=== PATIENT | male | born 1930 | race Caucasian/White ===

== ENCOUNTER 2016-05-22 11:07 | Outpatient (CLI) | payer MEDICARE, OTHER | END 2016-05-22 11:08 | disposition home or self-care (01) | DX: M47.816 Spondylosis without myelopathy or radiculopathy, lumbar region (principal) ==

== ENCOUNTER 2017-02-19 01:42 | Outpatient (CLI) | payer MEDICARE, OTHER | END 2017-02-19 01:43 | disposition critical access hospital (66) | LOC: EMS 01:42 | PROVIDERS: ATTEND Surgery | DX: K62.5 Hemorrhage of anus and rectum (principal) | CPT/HCPCS: A0425; A0427 ==

== ENCOUNTER 2017-02-19 02:06 | Inpatient (IN) | payer MEDICARE, OTHER ==
[2017-02-19 02:39] LABS: BASOPHILS # (AUTO) 0.1 10^3/uL (0.0-0.1); BASOPHILS % (AUTO) 0.9 %; EOSINOPHILS # (AUTO) 0.2 10^3/uL (0.0-0.7); EOSINOPHILS % (AUTO) 3.3 %; HCT - HEMATOCRIT 35.1 % (42.0-52.0); HGB - HEMOGLOBIN 11.7 g/dL (14.0-18.0); LYMPHOCYTES # (AUTO) 1.3 10^3/uL (1.5-3.5); LYMPHOCYTES % (AUTO) 18.4 %; MEAN CORPUSCULAR HEMOGLOBIN 30.7 pg (27.0-31.0); MEAN CORPUSCULAR HGB CONC 33.3 g/dL (32.0-36.0); MEAN CORPUSCULAR VOLUME 92.2 fL (80.0-94.0); MEAN PLATELET VOLUME 8.5 fL (7.4-11.4); MONOCYTES # (AUTO) 0.5 10^3/uL (0.0-1.0); MONOCYTES % (AUTO) 7.3 %; NEUTROPHILS # (AUTO) 4.8 10^3/uL (1.5-6.6); NEUTROPHILS % (AUTO) 70.1 %; RED CELL DISTRIBUTION WIDTH 13.7 % (12.0-15.0); UNCORRECTED WHITE BLOOD COUNT 6.8 x10^3/uL; WHITE BLOOD COUNT 6.8 x10^3/uL (4.8-10.8)
[2017-02-19 02:45] LABS: INR 1.1 (0.8-1.2); PT - PROTHROMBIN TIME 12.4 secs (9.9-12.6)
[2017-02-19 02:47] LABS: ALBUMIN/GLOBULIN RATIO 1.2 (1.0-2.2); BILIRUBIN,TOTAL 0.5 mg/dL (0.2-1.0); CALCIUM 8.2 mg/dL (8.5-10.3); POTASSIUM 4.1 mmol/L (3.5-5.0); TOTAL PROTEIN 6.3 g/dL (6.7-8.2)
[2017-02-19 02:52] LABS: PARTIAL THROMBOPLASTIN TIME 21.8 secs (24.9-33.3)
--- NOTE | 2017-02-19 03:45 | ED Physician Documentation ---
PD HPI GI BLEED - Stated complaint Stated Complaint: GI BLEED - Chief complaint Chief Complaint: Abd Pain - History obtained from History obtained from: Patient - History of Present Illness Timing - onset: Enter time (22:00) Timing - details: Abrupt onset Pain level max: 1 Pain level now: 1 Associated symptoms: BRBPR, Abdominal pain (minimal discomfort, 1 (out of 10) per patient, intermittent cramping). No: Vomiting, Chest pain Contributing factors: Aspirin use (81mg PO QD) Improved by: Other (no ameliorating factors) Worsened by: Other (no apparent exacerbating factors) Recently seen: Not recently seen - Additional information Additional information: presents to ED for hematochezia. Patient says he had normal BM 10 AM (he routinely looks at his stool, as he has h/o colon CA and was instructed to look if any visible blood or dark black stool). He then had a BM at 10 PM that appeared to be bright red blood with no stool. He then passed more bright red blood at 1 AM and thus called 911. He had colon CA 2010 for which he had removal of part of the colon. He then had left lower lobe (lung) mass which was eventually treated with lobectomy (he estimates this was either late 2010 or else 2011). He has not had any problems associated with these diagnoses since then. Review of Systems Constitutional: reports: Reviewed and negative Eyes: reports: Reviewed and negative Ears: reports: Reviewed and negative Nose: reports: Reviewed and negative Throat: reports: Reviewed and negative Cardiac: reports: Reviewed and negative Respiratory: reports: Reviewed and negative GI: reports: Abdominal Pain, Bloody / black stool. denies: Nausea, Vomiting, Constipation, Diarrhea : denies: Dysuria, Frequency Skin: reports: Reviewed and negative Musculoskeletal: reports: Reviewed and negative Neurologic: reports: Reviewed and negative PD PAST MEDICAL HISTORY - Past Medical History Past Medical History: Yes Endocrine/Autoimmune: Type 2 diabetes - Past Surgical History Past Surgical History: Yes - Present Medications Home Medications: Ambulatory Orders Medication Instructions Recorded Confirmed Aspirin [Ecotrin] 81 mg PO DAILY 01/05/14 02/19/17 Metformin HCl [Fortamet] 500 mg PO BID 01/05/14 02/19/17 oxyCODONE [Roxicodone] 5 - 10 mg PO Q6H #30 tablet 01/05/14 02/19/17 - Allergies Allergies/Adverse Reactions: Allergies Allergy/AdvReac Type Severity Reaction Status Date / Time morphine Allergy Respiratory Verified 01/05/14 09:34 - Social History Does the pt smoke?: No Smoking Status: Former smoker Does the pt drink ETOH?: No Does the pt have substance abuse?: No - Immunizations Immunizations are current?: No Immunizations: TDAP >10years/unknown PD ED PE NORMAL - Vitals Vital signs reviewed: Yes - General General: Alert and oriented X 3, No acute distress, Well developed/nourished - HEENT HEENT: Moist mucous membranes - Neck Neck: Supple, no meningeal sign - Cardiac Cardiac: RRR, No murmur - Respiratory Respiratory: No respiratory distress, Clear bilaterally - Abdomen Abdomen: Soft, Non tender, Non distended - Back Back: No CVA TTP - Derm Derm: Normal color, Warm and dry - Extremities Extremities: No edema - Neuro Neuro: Alert and oriented X 3 Results - Vitals Vitals: Vital Signs - 24 hr 02/19/17 02/19/17 02/19/17 02:08 04:22 05:31 Temperature 36.6 C Heart Rate 79 87 81 Respiratory 16 18 18 Rate Blood Pressure 140/65 H 117/61 112/63 O2 Saturation 100 100 99 Oxygen O2 Source Room air - Labs Labs: Laboratory Tests 02/19/17 02/19/17 02/19/17 02:22 02:22 02:22 WBC 6.8 RBC 3.80 L Hgb 11.7 L Hct 35.1 L MCV 92.2 MCH 30.7 MCHC 33.3 RDW 13.7 Plt Count 174 MPV 8.5 Neut # 4.8 Lymph # 1.3 L Latimer # 0.5 Eos # 0.2 Baso # 0.1 Absolute Nucleated RBC 0.00 Nucleated RBC % 0.0 PT 12.4 INR 1.1 APTT 21.8 L Sodium 136 Potassium 4.1 Chloride 105 Carbon Dioxide 24 Anion Gap 7.0 BUN 29 H Creatinine 1.0 Estimated GFR (MDRD) 71 L Glucose 145 H Calcium 8.2 L Total Bilirubin 0.5 AST 13 ALT 11 Alkaline Phosphatase 41 L Total Protein 6.3 L Albumin 3.4 Globulin 2.9 Albumin/Globulin Ratio 1.2 Lipase 22 Blood Type Antibody Screen Crossmatch IS Only 02/19/17 02:22 WBC RBC Hgb Hct MCV MCH MCHC RDW Plt Count MPV Neut # Lymph # Latimer # Eos # Baso # Absolute Nucleated RBC Nucleated RBC % PT INR APTT Sodium Potassium Chloride Carbon Dioxide Anion Gap BUN Creatinine Estimated GFR (MDRD) Glucose Calcium Total Bilirubin AST ALT Alkaline Phosphatase Total Protein Albumin Globulin Albumin/Globulin Ratio Lipase Blood Type O POSITIVE Antibody Screen NEGATIVE Crossmatch IS Only See Detail PD MEDICAL DECISION MAKING - ED course Complexity details: reviewed results, re-evaluated patient, considered differential, d/w patient, d/w family Departure - Departure Disposition: [facility] DC/Xfer Clinical Impression: Lower gastrointestinal bleeding Condition: Stable Discharge Date/Time: 02/19/17 06:11
[2017-02-19] MEDS ORDERED: PEG 3350/NA SULF,BICARB,CL/KCL 4,000 ML BOTTLE PO ONE (05:50)
[2017-02-19] MEDS ORDERED: DIATR MEGLU/DIATRIZOATE SODIUM 120 ML BOTTLE PO ONE (05:50)
[2017-02-19] MEDS ORDERED: SODIUM CHLORIDE FLUSH 0.9% 10 ML SYRINGE IVP PRN (05:52)
[2017-02-19] MEDS ORDERED: ONDANSETRON 4 MG/2 ML VIAL IVP PRN (05:52)
[2017-02-19] MEDS ORDERED: SODIUM CHLORIDE 0.9% 1,000 ML IV SCH ×2 (06:00→17:28)
[2017-02-19] MEDS ORDERED: IOPAMIDOL-300 50 ML VIAL ONE (06:11)
[2017-02-19] MEDS ORDERED: IOPAMIDOL-300 50 ML VIAL PO ONE (06:19)
[2017-02-19] MEDS ORDERED: IOPAMIDOL-300 100 ML VIAL ONE (06:56)
--- NOTE | 2017-02-19 07:08 | HISTORY & PHYSICAL EXAMINATION ---
DATE OF ADMISSION: 02/19/2017 CHIEF COMPLAINT: Gastrointestinal bleed. HISTORY OF PRESENT ILLNESS: The patient is an 86-year-old white male with past medical history of colon cancer, status post colon resection, who presented from home, brought in by ambulance to [facility] after developing acute onset of large gastrointestinal bleed. The patient described that he was in his usual state of health up to 10 p.m. on 02/18, at which time he needed to go to bathroom and he had a burgundy color, dark red, smelly, bloody stool. Subsequently, around 1 a.m. on 02/19, he had a similar bowel movement again; however, at that time it was a significantly large amount. His described that the patient had about a gallon of blood loss. The blood was running down his leg. There was blood all around the toilet and the patient was even leaking blood when he went back to bed and his sheets had a puddle of blood. Besides the GI bleed, the patient complained of gaseous abdominal distention and pain. The pain located in the left lower quadrant. The patient denied nausea, vomiting or fever. Regarding the history of colon cancer, it was diagnosed on a screening colonoscopy in 2010, and subsequently the patient underwent partial colectomy. He was on oral chemotherapy agent for a while, but the oral chemotherapy agent was not very effective and subsequently he did not accept any other chemotherapy regimen. At some point, however, chemotherapy was entertained and the patient does have a right-sided chest port. He tells me, however, that the chest port has never been used. Subsequently, in 2012, the patient's cancer was complicated by a lung mass. He underwent left lobe resection and colon cancer metastatic lesion was found in his lungs. The patient follows up with oncology in the [facility] [place] system. He undergoes screening blood work; continues to live independently have good life quality and he is firm on his belief of not wanting chemotherapy. Upon presentation to the ER, the patient was found with stable vital signs; however, he had worsening anemia. His baseline hemoglobin is 13.2 and hemoglobin today was 11.7. Initial laboratories showed BUN of 29, creatinine of 1. The ER physician, Dr. Wilcox, discussed the case with the covering surgeon, Dr. Parsons, who would feel comfortable admitting this patient here to [facility] and she would see the patient in consultation and consider colonoscopy. Code status was discussed at the bedside. The patient's was also present. It should be noted the patient was alert, oriented with intact cognition and mentation. He wishes to be FULL CODE STATUS, noting that he would not wish to be on life support for a prolonged period of time. PAST MEDICAL HISTORY 1. Borderline diabetes. 2. Metastatic stage IV colon cancer. Please see brief details listed in history present illness. 3. Peripheral neuropathy secondary to diabetes. 4. Aortic valve repair done about 20 years ago. 5. Osteoarthritis status post bilateral knee replacements. OUTPATIENT MEDICATIONS Included 1. Aspirin. 2. Metformin. 3. Oxycodone. ALLERGIES: MORPHINE. REVIEW OF SYSTEMS: Please see pertinent positives and pertinent negatives listed above at history of present illness. In addition, the patient reported dizziness, lightheadedness and presyncopal episode after he experienced GI bleed. His at the bedside told me that the patient passed out for a brief period of time. On complete 12-point review, there was no additional complaint. FAMILY HISTORY: Negative for colon cancer. Positive for breast cancer in the sister. SOCIAL HISTORY: The patient is fully functional with activities and instrumental activities of daily living. He mows the lawn and walks his dog. He is a nonsmoker, quit about 30 years ago. Lives with his . ER workup reviewed per electronic medical record. PHYSICAL EXAMINATION VITAL SIGNS: Temperature 36.6 Celsius, respiratory rate 18, heart rate in the 80s, blood pressure 120/60, oxygen saturation 100% on room air. GENERAL: The patient is an elderly male, who is not in distress. HEENT: No pallor, no jaundice. CVS: S1, S2. No obvious murmur. RESPIRATORY: Clear to auscultation without wheezes or crackles. SKIN: There was a large pigmented nevus on the right side of the upper back. No rash. No jaundice. ABDOMEN: Bowel sounds active. Abdomen is slightly distended, nontender, benign. LYMPH: No lymphedema. MUSCULOSKELETAL: Atraumatic. NEUROLOGICAL: Alert, oriented, nonfocal. PSYCH: Cooperative. ASSESSMENT/ACTIVE ISSUES/DIAGNOSES 1. Short syncope/presyncope in the setting of acute and active gastrointestinal bleed. 2. Lower gastrointestinal bleed with complicated history of colon cancer. 3. Blood loss anemia, hemoglobin decreased from 13.2 to 11.7. 4. Hemodynamically stable. 5. FULL CODE. PLAN AND ORDERS 1. The patient is getting admitted as inpatient given the large amount of blood loss and developing anemia and high risk for rebleed with history of colon cancer. 2. We will monitor the blood counts and transfuse if needed. 3. The case was discussed with the covering surgeon who will do a colonoscopy if needed. 4. In the meantime, I ordered a CT scan of the abdomen with contrast and I also added tagged red blood cell scan, which should be done if further bleeding observed. Per the patient's and his 's description, the patient had a large amount of blood loss. This is not shown looking at his hemodynamics and blood counts; however, it is still possible that he had a significant amount of blood loss and the blood counts lag behind the clinical course. 5. Deep venous thrombosis prophylaxis with Venodyne boots. 6. Clear liquid diet and colon prep as tolerated. Time spent in the care of this patient was 1 hour. JOB #: [id number] EXT JOB #:[id number] GE
[2017-02-19] MEDS: PANTOPRAZOLE 40 MG VIAL IVP SCH (07:55)
[2017-02-19] MEDS: SODIUM CHLORIDE FLUSH 0.9% 10 ML SYRINGE IVP SCH ×3 (07:55→20:36)
[2017-02-19 08:20] LABS: BILIRUBIN,URINE NEGATIVE (NEGATIVE); PH,URINE 5.5 PH (5.0-7.5)
[2017-02-19 08:22] LABS: UA CHARGE (STRIP ONLY) YES; UR CULTURE IF IND NOT INDICATED
[2017-02-19] MEDS ORDERED: IOPAMIDOL-300 100 ML VIAL IVP ONE (08:28)
--- NOTE | 2017-02-19 09:07 | CT Report ---
CT ABDOMEN AND PELVIS WITH CONTRAST: 02/19/2017 CLINICAL INDICATION: GI bleed, history of colon cancer. TECHNIQUE: Axial CT images of the abdomen and pelvis were obtained with 100 mL Isovue-300 intravenou sly as well as oral contrast. No previous CT is available for comparison. In accordance with CT protocol optimization, one or more of the following dose reduction techniques w ere utilized for this exam: automated exposure control, adjustment of mA and/or KV based on patient size, or use of iterative reconstructive technique. FINDINGS: Limited evaluation of the lung bases demonstrates atelectasis. Abdomen: The liver demonstrates multiple cysts. No definite solid hepatic lesion is appreciated. T he spleen, pancreas, and adrenal glands are unremarkable. The kidneys demonstrate cortical cysts. A small splenule is noted in the splenic hilum. The gallbladder demonstrates cholelithiasis, but no d istention or pericholecystic inflammation is seen. No bowel dilatation, free gas, or free fluid is p resent. No abdominal adenopathy is seen. Pelvis: Extensive sigmoid diverticulosis is present. No pelvic adenopathy or free fluid is present. The prostate is enlarged. There is a right inguinal hernia, containing fat. No bowel herniation i s seen. Osseous structures demonstrate degenerative changes. IMPRESSION: EXTENSIVE SIGMOID DIVERTICULOSIS. NO PERICOLONIC INFLAMMATION TO SUGGEST ACUTE DIVERTIC ULITIS. MULTIPLE HEPATIC CYSTS. RIGHT INGUINAL HERNIA, CONTAINING FAT. JOB #: [id number] EXT JOB #:[id number]
[2017-02-19 10:47] LABS: HCT - HEMATOCRIT 35.6 % (42.0-52.0); MEAN CORPUSCULAR HEMOGLOBIN 30.6 pg (27.0-31.0); MEAN CORPUSCULAR HGB CONC 33.8 g/dL (32.0-36.0); MEAN CORPUSCULAR VOLUME 90.7 fL (80.0-94.0); MEAN PLATELET VOLUME 8.2 fL (7.4-11.4); RED BLOOD COUNT 3.92 10^6/uL (4.70-6.10); RED CELL DISTRIBUTION WIDTH 14.1 % (12.0-15.0)
--- NOTE | 2017-02-19 13:42 | Nuclear Medicine Prelim Report ---
Exam: NM GI BLEED/TAGGED RBC IMPRESSION: No scintigraphic evidence of active GI bleed. [facility] SITE ID: [id number]
--- NOTE | 2017-02-19 13:45 | Nuclear Medicine Report ---
EXAM: GASTROINTESTINAL BLEED LOCALIZATION STUDY WITH VASCULAR FLOW STUDY EXAM DATE: 02/19/2017 01:15 PM. CLINICAL HISTORY: Lower GIB. COMPARISON: CT abdomen/pelvis 02/19/2017. TECHNIQUE: The patient's own red blood cells were labeled with 25.6 mCi Tc-99m pertechnetate accordin g to department protocol. Following the administration of the radiolabeled red blood cells, dynamic f low images were acquired for the initial 2 minutes. Next, dynamic gamma camera imaging for a total of 60 minutes post injection was acquired from the anterior projection. Postvoid images were also acqui red. FINDINGS: No foci of progressive antegrade or retrograde radiotracer activity to suggest etiology of GI bleed. Physiological uptake in vasculature, spleen, liver, and bladder. IMPRESSION: No scintigraphic evidence of active GI bleed. [facility] Referring Provider Line: [phone] SITE ID: [id number]
--- NOTE | 2017-02-19 14:17 | CONSULTATION NOTE ---
DATE OF CONSULTATION: 02/19/2017 00:00:00 REASON FOR CONSULTATION: Gastrointestinal bleed. HISTORY OF PRESENT ILLNESS: This is an 86-year-old male with a known history of metastatic colon cancer diagnosed in 2010, status post partial colectomy, who presented to the emergency department early this morning for 2 episodes of bright red blood per rectum. The first episode was around 2 a.m. He sat on the toilet and a copious amount of bright red blood was evacuated. He then went back to bed and woke up again with bright red blood, which had drained onto the sheets, soaking through the sheets. Subsequently he was seen in the emergency department for evaluation. His vital signs were noted to be normal and his hematocrit was noted to be 35. He was subsequently admitted to the medical service. This morning he has undergone a CT scan of the abdomen and pelvis which does not demonstrate any signs of recurrent metastatic disease. He also underwent a bleeding scan, which is preliminarily negative for any active bleeding. He has continued to have 4 episodes of dark blood per rectum with blood clots. His hemoglobin has remained stable and actually increased slightly from 11.7 to 12.0 and his hematocrit is 35.6 from 35.1 at 10 a.m. this morning. PAST MEDICAL HISTORY: Significant for diabetes, stage IV colon cancer, peripheral neuropathy, aortic valve repair 20 years ago, osteoarthritis. PAST SURGICAL HISTORY: lobectomy for metastatic colon cancer to the lung, Bilateral knee replacement, aortic valve replacement, partial colectomy with laterality unknown. HOME MEDICATIONS: 1. Aspirin 81 mg daily. 2. Metformin. 3. Oxycodone. ALLERGIES TO MEDICATION: MORPHINE. PHYSICAL EXAMINATION: VITAL SIGNS: 36.4 temperature, blood pressure 111/65, heart rate 81, respiratory rate 18, O2 saturation is 100% on room air. GENERAL: The patient is awake, alert, oriented x3, in no acute distress. He is of average build. CARDIOVASCULAR: Regular rate and rhythm. CHEST: Clear to auscultation bilaterally without rhonchi or wheezing. ABDOMEN: Soft, nondistended, nontender to palpation. EXTREMITIES: Well perfused. LABORATORY VALUES: White count 7.0, hemoglobin 12, hematocrit 35.6, platelets 194. INR 1.1. Sodium 136, potassium 4.1, chloride 105, bicarbonate 24, BUN 29, creatinine 1.0. ASSESSMENT: This is an 86-year-old gentleman with bright red blood per rectum. PLAN: The patient will undergo a bowel prep this evening and colonoscopy tomorrow. The procedure was explained to the patient in detail including the potential risks involved including, but not limited to bleeding, perforation, and missed lesions. I did discuss with the patient the possible differential diagnosis of his GI bleed which includes but is not limited to recurrent colon cancer, diverticular bleeding, colonic or rectal ulcerations or bleeding AVM. JOB #: [id number] EXT JOB #:[id number] [facility]ITAL[facility]iche[facility]
[2017-02-19] MEDS ORDERED: diphenhydrAMINE 25 MG CAPSULE PO PRN (17:26)
[2017-02-19 17:48] LABS: HCT - HEMATOCRIT 33.1 % (42.0-52.0)
[2017-02-19] MEDS: SODIUM/POTASSIUM/MAG SULFATES 354 ML PREP KIT PO SCH (19:02)
--- NOTE | 2017-02-19 19:11 | PROVIDER PROGRESS NOTE ---
Subjective - Prog Note Date Prog Note Date: 02/19/17 Prog Note Time: 08:00 - Subjective Pt reports feeling: Improved Subjective: Juan notes that he did not sleep well due to the events leading up to admission. He denies SOB, chest pain, N/V, or new cough. He admits to his bowel movements being less frequent and in the weeks prior to this having a difficult time with constipation. Current Medications - Current Medications Current Medications: Active Medications Generic Name Dose Route Start Last Admin Trade Name Freq PRN Reason Stop Dose Admin Diphenhydramine HCl 25 mg 02/19/17 17:26 Benadryl PO QPM PRN Insomnia Sodium Chloride 1,000 mls @ 50 mls/hr 02/19/17 19:48 02/20/17 01:29 Normal Saline 0.9% IV 50 mls/hr .Q20H GEORGI Administration Ondansetron HCl 4 mg 02/19/17 05:52 Zofran Inj IVP Q6HR PRN Nausea / Vomiting Pantoprazole Sodium 40 mg 02/19/17 07:00 02/20/17 05:58 Protonix IVP 40 mg QDAC GEORGI Administration Sodium Chloride 10 ml 02/19/17 05:52 Normal Saline Flush 0.9% IVP PRN PRN NEEDED PER PROVIDER ORDERS Sodium Chloride 10 ml 02/19/17 06:00 02/20/17 05:58 Normal Saline Flush 0.9% IVP 10 ml Q8HR GEORGI Administration Aspirin [Ecotrin] 81 mg PO DAILY 01/05/14 Metformin HCl [Fortamet] 500 mg PO BIDWM 01/05/14 Oxycodone HCl/Acetaminophen [Oxycodone-Acetaminophen 5-325] 1 tab PO Q6H PRN 12/28 Zolpidem [Ambien] 2.5 mg PO QPM 02/19/17 Objective - Vital Signs/Intake & Output Reviewed Vital Signs: Yes Vital Signs: Vital Signs x48h Temp Pulse Resp BP Pulse Ox 02/19/17 16:00 36.7 C 99 19 137/75 H 98 02/19/17 13:00 36.4 C L 102 H 20 140/82 H 98 Intake & Output: Intake & Output 02/16/17 02/17/17 02/18/17 02/19/17 23:59 23:59 23:59 23:59 Intake Total 2416 Balance 2416 - Objective General Appearance: positive: No acute distress, Alert Eyes Bilateral: positive: Normal inspection, PERRL ENT: positive: ENT inspection nml, Pharynx nml, Dry mucous membranes Neck: positive: Nml inspection, Thyroid nml, No JVD, Trachea midline Respiratory: positive: Chest non-tender, No respiratory distress, Breath sounds nml Cardiovascular: positive: Regular rate & rhythm, Systolic murmur Abdomen: positive: Non-tender, No organomegaly, Nml bowel sounds, No distention Back: positive: Nml inspection Skin: positive: Color nml, No rash, Warm, Dry Extremities: positive: Non-tender, Full ROM, Nml appearance, No pedal edema Neurologic/Psychiatric: positive: Oriented x3, CN's nml (2-12), Motor nml, Sensation nml, Mood/affect nml, Weakness - Lab Results Fish Bones: 02/20/17 05:56 02/20/17 05:56 Other Labs: Lab Results x24hrs 02/19/17 02/19/17 02/19/17 Range/Units 17:39 10:20 07:20 WBC 7.0 (4.8-10.8) x10^3/uL RBC 3.92 L (4.70-6.10) 10^6/uL Hgb 11.0 L 12.0 L (14.0-18.0) g/dL Hct 33.1 L 35.6 L (42.0-52.0) % MCV 90.7 (80.0-94.0) fL MCH 30.6 (27.0-31.0) pg MCHC 33.8 (32.0-36.0) g/dL RDW 14.1 (12.0-15.0) % Plt Count 194 (130-450) 10^3/uL MPV 8.2 (7.4-11.4) fL Urine Color YELLOW Urine Clarity CLEAR (CLEAR) Urine pH 5.5 (5.0-7.5) PH Ur Specific [place] 1.025 (1.002-1.030) Urine Protein NEGATIVE (NEGATIVE) mg/dL Urine Glucose (UA) NEGATIVE (NEGATIVE) mg/dL Urine Ketones NEGATIVE (NEGATIVE) mg/dL Urine Occult Blood NEGATIVE (NEGATIVE) Urine Nitrite NEGATIVE (NEGATIVE) Urine Bilirubin NEGATIVE (NEGATIVE) Urine Urobilinogen 0.2 (NORMAL) (NORMAL) E.U./dL Ur Leukocyte Esterase NEGATIVE (NEGATIVE) Ur Microscopic Review NOT INDICATED Urine Culture Comments NOT INDICATED Blood Type Recheck 02/19/17 Range/Units 06:36 WBC (4.8-10.8) x10^3/uL RBC (4.70-6.10) 10^6/uL Hgb (14.0-18.0) g/dL Hct (42.0-52.0) % MCV (80.0-94.0) fL MCH (27.0-31.0) pg MCHC (32.0-36.0) g/dL RDW (12.0-15.0) % Plt Count (130-450) 10^3/uL MPV (7.4-11.4) fL Urine Color Urine Clarity (CLEAR) Urine pH (5.0-7.5) PH Ur Specific [place] (1.002-1.030) Urine Protein (NEGATIVE) mg/dL Urine Glucose (UA) (NEGATIVE) mg/dL Urine Ketones (NEGATIVE) mg/dL Urine Occult Blood (NEGATIVE) Urine Nitrite (NEGATIVE) Urine Bilirubin (NEGATIVE) Urine Urobilinogen (NORMAL) E.U./dL Ur Leukocyte Esterase (NEGATIVE) Ur Microscopic Review Urine Culture Comments Blood Type Recheck O POSITIVE - Diagnostic Imaging Diagnostic Imaging Results: positive: Prelim report reviewed Assessment/Plan - Problem List (1) Lower gastrointestinal bleeding Impression: Patient noted to have miguel blood stool that "doubled the volume of his toilet water at home", with more that came out forcefully as he was making his way back to the bed. Amount slowly decreased after being admitted. Plan: General surgery planning for colonoscopy on 02/20/17. 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 Plan: Continue to monitor labs and clinically. (3) Syncope and collapse Impression: Patient was severely dizzy and collapsed on his bed just before ambulance arrived, but claims that he did not have a loss of consciousness. Plan: Continue to monitor, replace fluids gently. (4) History of malignant neoplasm of colon Impression: Patient has a known history of colon CA in 2010 that has been in remission without known metastatic disease. Plan: General surgery to perform colonoscopy on 02/20/17 for further evaluation.
[2017-02-19] MEDS: SODIUM CHLORIDE 0.9% 1,000 ML IV SCH (20:37)
[2017-02-20] MEDS: SODIUM CHLORIDE 0.9% 1,000 ML IV SCH (01:29)
[2017-02-20] MEDS: SODIUM/POTASSIUM/MAG SULFATES 354 ML PREP KIT PO SCH (04:06)
[2017-02-20] MEDS: SODIUM CHLORIDE FLUSH 0.9% 10 ML SYRINGE IVP SCH (05:58)
[2017-02-20] MEDS: PANTOPRAZOLE 40 MG VIAL IVP SCH (05:58)
[2017-02-20 06:11] LABS: HCT - HEMATOCRIT 32.8 % (42.0-52.0); HGB - HEMOGLOBIN 11.1 g/dL (14.0-18.0); MEAN CORPUSCULAR HEMOGLOBIN 31.2 pg (27.0-31.0); MEAN CORPUSCULAR HGB CONC 33.9 g/dL (32.0-36.0); MEAN CORPUSCULAR VOLUME 92.2 fL (80.0-94.0); MEAN PLATELET VOLUME 8.7 fL (7.4-11.4); POTASSIUM 3.7 mmol/L (3.5-5.0); RED BLOOD COUNT 3.55 10^6/uL (4.70-6.10); RED CELL DISTRIBUTION WIDTH 13.6 % (12.0-15.0); WHITE BLOOD COUNT 9.2 x10^3/uL (4.8-10.8)
[2017-02-20] MEDS ORDERED: LACTATED RINGERS 1,000 ML IV ONE (07:38)
[2017-02-20] MEDS ORDERED: fentaNYL 100 MCG/2 ML VIAL IVP ONE (07:57)
[2017-02-20] MEDS ORDERED: MIDAZOLAM 2 MG/2 ML VIAL IVP ONE (07:57)
--- NOTE | 2017-02-20 10:23 | Discharge Plan ---
Discharge Plan Disposition: 01 Home, Self Care Condition: Stable Diet: Regular Activity Restrictions: No Restrictions Shower Restrictions: No Driving Restrictions: No Weight Bearing: Full Weight Additional Instructions or Follow Up instructions: Please see PCP for further evaluation options and as a follow up to this hospitalization. Take all prescribed medications. No Smoking: If you smoke, Please STOP! Call for help.
--- NOTE | 2017-02-20 10:26 | DISCHARGE SUMMARY ---
Discharge Summary Admit Date: 02/19/17 Discharge Date: 02/20/17 Discharging Provider: OZZIE Jackson Code Status: Attempt Resuscitation Condition at Discharge: Good Discharge Disposition: 01 Home, Self Care - DIAGNOSES Admission Diagnoses: GI hemorrhage Iron deficiency anemia secondary to blood loss Syncope Malignant neoplasm of colon DM type 2 Discharge Diagnoses with Status of Each Condition: GI hemorrhage Iron deficiency anemia secondary to blood loss Syncope Malignant neoplasm of colon DM type 2 - ALLERGIES Allergies/Adverse Reactions: Allergies Allergy/AdvReac Type Severity Reaction Status Date / Time morphine Allergy Respiratory Verified 01/05/14 09:34 - MEDICATIONS Home Medications: Ambulatory Orders Medication Instructions Recorded Confirmed Aspirin [Ecotrin] 81 mg PO DAILY 01/05/14 02/19/17 Metformin HCl [Fortamet] 500 mg PO BIDWM 01/05/14 02/19/17 Oxycodone HCl/Acetaminophen 1 tab PO Q6H PRN 02/19/17 02/19/17 [Oxycodone-Acetaminophen 5-325] Zolpidem [Ambien] 2.5 mg PO QPM 02/19/17 02/19/17 - PHYSICAL EXAM AT DISCHARGE General Appearance: positive: No acute distress, Alert Eyes Bilateral: positive: Normal inspection, PERRL, EOMI ENT: positive: ENT inspection nml, Pharynx nml, No signs of dehydration Neck: positive: Nml inspection, Thyroid nml, No JVD, Trachea midline Respiratory: positive: Chest non-tender, No respiratory distress, Breath sounds nml Cardiovascular: positive: Regular rate & rhythm, No gallop Peripheral Pulses: positive: 1+ Abdomen: positive: Non-tender, No organomegaly, Nml bowel sounds, Other ( chronic inguinal hernia. Pt wears an abdominal binder.) Rectal: positive: Non-tender Back: positive: Nml inspection Skin: positive: Color nml, No rash, Warm, Dry Extremities: positive: Non-tender, Full ROM, Nml appearance, No pedal edema Neurologic/Psychiatric: positive: Oriented x3, CN's nml (2-12), Motor nml, Sensation nml, Mood/affect nml - LABS Result Diagrams: 02/20/17 05:56 02/20/17 05:56 - DIAGNOSTIC IMAGING Diagnostic Imaging Results: Final report reviewed - FOLLOW UP Follow Up: Follow up with PCP in the next few day as a post-hospital visit. May be beneficial to see your oncologist. - TIME SPENT Time Spent in Discharge (Minutes): 30
[2017-02-20 10:42] VITALS: BP 128/62
== END 2017-02-20 11:10 | disposition home or self-care (01) | DRG 379 ==
LOC: EDUNIT# → ED 02:06 → MS2 05:52
PROVIDERS: ADMIT Internal Medicine; ATTEND Nurse Practitioner
PROC: 0DJD8ZZ Inspection of Lower Intestinal Tract, Via Natural or Artificial Opening Endoscopic (ICD-10-PCS; principal; 2017-02-20 07:30)
DX: K92.2 Gastrointestinal hemorrhage, unspecified (principal); E11.9 Type 2 diabetes mellitus without complications; D50.0 Iron deficiency anemia secondary to blood loss (chronic); R55 Syncope and collapse; K57.30 Diverticulosis of large intestine without perforation or abscess without bleeding; Z79.899 Other long term (current) drug therapy; K64.8 Other hemorrhoids; Z87.891 Personal history of nicotine dependence; K64.4 Residual hemorrhoidal skin tags; E11.42 Type 2 diabetes mellitus with diabetic polyneuropathy; M19.90 Unspecified osteoarthritis, unspecified site; Z85.038 Personal history of other malignant neoplasm of large intestine; Z85.118 Personal history of other malignant neoplasm of bronchus and lung; Z90.49 Acquired absence of other specified parts of digestive tract; Z90.2 Acquired absence of lung [part of]; Z96.653 Presence of artificial knee joint, bilateral; Z79.82 Long term (current) use of aspirin; Z79.84 Long term (current) use of oral hypoglycemic drugs; Z79.891 Long term (current) use of opiate analgesic
CPT/HCPCS: 36415; 74177; 78278; 80048; 80053; 81001; 81003; 83690; 85014; 85018; 85025; 85610; 85730; 86850; 86900; 86901; 86920; 87086; 99284

== ENCOUNTER 2017-02-23 19:11 | Outpatient (CLI) | payer MEDICARE, OTHER | END 2017-02-23 19:12 | disposition critical access hospital (66) | LOC: EMS 19:11 | PROVIDERS: ATTEND Surgery | DX: K62.5 Hemorrhage of anus and rectum (principal) | CPT/HCPCS: A0425; A0427 ==

== ENCOUNTER 2017-02-23 19:39 | Inpatient (IN) | payer MEDICARE, OTHER ==
[2017-02-23] MEDS ORDERED: SODIUM CHLORIDE 0.9% 500 ML IV ONE ×2 (19:40→23:43)
[2017-02-23] MEDS ORDERED: SODIUM CHLORIDE 0.9% 1,000 ML IV ONE (19:40)
[2017-02-23 19:56] LABS: BASOPHILS # (AUTO) 0.1 10^3/uL (0.0-0.1); BASOPHILS % (AUTO) 0.5 %; EOSINOPHILS # (AUTO) 0.1 10^3/uL (0.0-0.7); EOSINOPHILS % (AUTO) 1.2 %; HCT - HEMATOCRIT 27.1 % (42.0-52.0); HGB - HEMOGLOBIN 9.1 g/dL (14.0-18.0); LYMPHOCYTES # (AUTO) 0.7 10^3/uL (1.5-3.5); LYMPHOCYTES % (AUTO) 6.8 %; MEAN CORPUSCULAR HGB CONC 33.6 g/dL (32.0-36.0); MEAN CORPUSCULAR VOLUME 92.3 fL (80.0-94.0); MEAN PLATELET VOLUME 8.2 fL (7.4-11.4); MONOCYTES # (AUTO) 0.6 10^3/uL (0.0-1.0); MONOCYTES % (AUTO) 5.6 %; NEUTROPHILS # (AUTO) 9.2 10^3/uL (1.5-6.6); NEUTROPHILS % (AUTO) 85.9 %; RED BLOOD COUNT 2.93 10^6/uL (4.70-6.10); RED CELL DISTRIBUTION WIDTH 13.7 % (12.0-15.0); UNCORRECTED WHITE BLOOD COUNT 10.7 x10^3/uL; WHITE BLOOD COUNT 10.7 x10^3/uL (4.8-10.8)
[2017-02-23 20:04] LABS: INR 1.1 (0.8-1.2); PT - PROTHROMBIN TIME 12.8 secs (9.9-12.6)
--- NOTE | 2017-02-23 20:08 | ED Physician Documentation ---
PD HPI GI BLEED - Stated complaint Stated Complaint: GI BLEED - Chief complaint Chief Complaint: Abd Pain - History obtained from History obtained from: Patient - History of Present Illness Timing - onset: Enter time (18:00 today (this episode; has other previous, recent episodes)) Timing - details: Abrupt onset Pain level max: 1 Pain level now: 1 Associated symptoms: BRBPR Improved by: Other (no apparent ameliorating factors) Worsened by: Other (no apparent inciting or exacerbating factors) Similar symptoms before: Diagnosis (lower GI bleed) Recently seen: Admitted - Additional information Additional information: admitted few days ago to [facility] for lower GI bleeding, h/o colon CA. He had lower endoscopy during [facility] stay and discharged 2 days ago. Patient says his BM x 2 yesterday were normal, but tonight at 6 PM he had BM with "three or four spoonfuls of clot" (per patient). He contacted his PMD, and covering physician recommended miralax. went to get this product and while she was gone, patient felt lightheaded and thus took his BP, results were 116/ 61. Before he stood up, however, he had large BRBPR with large clots. came home and called 911. Review of Systems Constitutional: denies: Fever, Chills, Sweats Eyes: reports: Reviewed and negative Ears: reports: Reviewed and negative Nose: reports: Reviewed and negative Throat: reports: Reviewed and negative Cardiac: reports: Reviewed and negative Respiratory: reports: Reviewed and negative GI: reports: Bloody / black stool. denies: Abdominal Pain, Nausea, Vomiting, Constipation, Diarrhea : denies: Dysuria, Frequency Skin: reports: Reviewed and negative Musculoskeletal: reports: Reviewed and negative Neurologic: reports: Generalized weakness (mild and intermittent (only mentioned during ROS, not part of chief complaint nor HPI)). denies: Focal weakness, Numbness, Headache PD PAST MEDICAL HISTORY - Past Medical History Past Medical History: Yes Cardiovascular: Valve disorder Neuro: None Endocrine/Autoimmune: Type 2 diabetes GI: GERD, Other : Frequency Musculoskeletal: Chronic back pain Other Past Medical History: colon ca - Past Surgical History Past Surgical History: Yes Ortho: Knee replacement Cardiovascular: Lobectomy - Present Medications Home Medications: Ambulatory Orders Medication Instructions Recorded Confirmed Aspirin [Ecotrin] 81 mg PO DAILY 01/05/14 02/23/17 Metformin HCl [Fortamet] 500 mg PO BIDWM 01/05/14 02/23/17 Oxycodone HCl/Acetaminophen 1 tab PO Q6H PRN 02/19/17 02/23/17 [Oxycodone-Acetaminophen 5-325] Senna [Senokot] 1 tab PO TID 02/23/17 02/23/17 - Allergies Allergies/Adverse Reactions: Allergies Allergy/AdvReac Type Severity Reaction Status Date / Time morphine Allergy Unknown Respiratory Verified 02/24/17 00:15 - Social History Does the pt smoke?: No Smoking Status: Never smoker Does the pt drink ETOH?: No Does the pt have substance abuse?: No - Immunizations Immunizations are current?: No Immunizations: TDAP >10years/unknown PD ED PE NORMAL - Vitals Vital signs reviewed: Yes - General General: Alert and oriented X 3, No acute distress, Well developed/nourished - HEENT HEENT: Moist mucous membranes - Cardiac Cardiac: RRR, No murmur - Respiratory Respiratory: No respiratory distress, Clear bilaterally - Abdomen Abdomen: Normal bowel sounds, Soft, Non tender, Non distended - Derm Derm: Normal color, Warm and dry - Extremities Extremities: No edema - Neuro Neuro: Alert and oriented X 3 Results - Vitals Vitals: Vital Signs - 24 hr 02/23/17 02/23/17 02/23/17 19:40 21:04 22:55 Temperature 36.9 C Heart Rate 90 85 87 Respiratory 18 16 14 Rate Blood Pressure 109/68 110/63 108/55 L O2 Saturation 100 100 100 Oxygen O2 Source Room air - Labs Labs: Laboratory Tests 02/23/17 02/23/17 02/23/17 19:50 19:50 19:50 WBC 10.7 RBC 2.93 L Hgb 9.1 L Hct 27.1 L MCV 92.3 MCH 31.0 MCHC 33.6 RDW 13.7 Plt Count 237 MPV 8.2 Neut # 9.2 H Lymph # 0.7 L [place] # 0.6 Eos # 0.1 Baso # 0.1 Absolute Nucleated RBC 0.00 Nucleated RBC % 0.0 PT 12.8 H INR 1.1 APTT 23.5 L Sodium Potassium Chloride Carbon Dioxide Anion Gap BUN Creatinine Estimated GFR (MDRD) Glucose Calcium Total Bilirubin AST ALT Alkaline Phosphatase Total Protein Albumin Globulin Albumin/Globulin Ratio Lipase Blood Type O POSITIVE Antibody Screen NEGATIVE 02/23/17 19:50 WBC RBC Hgb Hct MCV MCH MCHC RDW Plt Count MPV Neut # Lymph # [place] # Eos # Baso # Absolute Nucleated RBC Nucleated RBC % PT INR APTT Sodium 136 Potassium 4.2 Chloride 102 Carbon Dioxide 22 Anion Gap 12.0 BUN 22 H Creatinine 1.2 Estimated GFR (MDRD) 57 L Glucose 208 H Calcium 8.4 L Total Bilirubin 0.3 AST 11 ALT < 10 L Alkaline Phosphatase 34 L Total Protein 6.0 L Albumin 3.0 L Globulin 3.0 Albumin/Globulin Ratio 1.0 Lipase 21 L Blood Type Antibody Screen PD MEDICAL DECISION MAKING - ED course Complexity details: reviewed old records, reviewed results, re-evaluated patient , considered differential, d/w patient ED course: Patient's hemoglobin is 2 grams lower than last draw prior to his recent hospital discharge, and he describes a significant amount of maroon/dark red blood per rectum tonight, with and medics corroborating the amount that was on the chair and floor. D/W Dr. Noble, who will admit patient. I also d/w Dr. Parsons (no specific surgical recommendation at this time, and she opines that patient possibly will need IR if his condition deteriorates). Departure - Departure Disposition: ED Place in Observation Clinical Impression: Lower gastrointestinal bleeding Condition: Good Discharge Date/Time: 02/24/17 00:16
[2017-02-23 20:09] LABS: BILIRUBIN,TOTAL 0.3 mg/dL (0.2-1.0); BUN - BLOOD UREA NITROGEN 22 mg/dL (6-20); CALCIUM 8.4 mg/dL (8.5-10.3); CARBON DIOXIDE - CO2 22 mmol/L (21-32); CHLORIDE 102 mmol/L (101-111); CREATININE 1.2 mg/dL (0.6-1.2); GFR - MDRD 57 (>89); GLUCOSE 208 mg/dL (70-100); LIPASE 21 U/L (22-51); POTASSIUM 4.2 mmol/L (3.5-5.0); SODIUM 136 mmol/L (135-145)
[2017-02-23 20:11] LABS: PARTIAL THROMBOPLASTIN TIME 23.5 secs (24.9-33.3)
[2017-02-23] MEDS ORDERED: ACETAMINOPHEN 325 MG TABLET PO PRN (23:43)
[2017-02-23] MEDS ORDERED: ZOLPIDEM 5 MG TABLET PO PRN (23:43)
[2017-02-23] MEDS ORDERED: PROMETHAZINE 25 MG/1 ML VIAL IM PRN (23:43)
[2017-02-23] MEDS ORDERED: oxyCODONE 5 MG TABLET PO PRN ×2 (23:43)
[2017-02-23] MEDS ORDERED: PROCHLORPERAZINE 10 MG/2 ML VIAL IVP PRN (23:43)
[2017-02-24 00:34] LABS: BASOPHILS % (AUTO) 0.5 %; EOSINOPHILS # (AUTO) 0.1 10^3/uL (0.0-0.7); EOSINOPHILS % (AUTO) 0.9 %; HCT - HEMATOCRIT 24.9 % (42.0-52.0); HGB - HEMOGLOBIN 8.5 g/dL (14.0-18.0); LYMPHOCYTES % (AUTO) 12.9 %; MEAN CORPUSCULAR HEMOGLOBIN 31.3 pg (27.0-31.0); MEAN CORPUSCULAR HGB CONC 34.1 g/dL (32.0-36.0); MEAN PLATELET VOLUME 8.1 fL (7.4-11.4); MONOCYTES # (AUTO) 0.5 10^3/uL (0.0-1.0); MONOCYTES % (AUTO) 6.5 %; NEUTROPHILS # (AUTO) 6.4 10^3/uL (1.5-6.6); NEUTROPHILS % (AUTO) 79.2 %; RED BLOOD COUNT 2.71 10^6/uL (4.70-6.10); RED CELL DISTRIBUTION WIDTH 13.6 % (12.0-15.0); UNCORRECTED WHITE BLOOD COUNT 8.1 x10^3/uL; WHITE BLOOD COUNT 8.1 x10^3/uL (4.8-10.8)
[2017-02-24] MEDS: SODIUM CHLORIDE 0.9% 1,000 ML IV SCH ×2 (00:36→04:57)
[2017-02-24] MEDS: SODIUM CHLORIDE FLUSH 0.9% 10 ML SYRINGE IVP PRN (00:42)
[2017-02-24] MEDS: PANTOPRAZOLE 40 MG VIAL IVP SCH ×3 (00:42→17:11)
[2017-02-24] MEDS: INSULIN REGULAR HUMAN 100 UNIT/1 ML 10 ML MDV SUBQ SCH ×4 (01:16→18:19)
--- NOTE | 2017-02-24 01:46 | HISTORY & PHYSICAL EXAMINATION ---
Chief Complaint - Chief Complaint Chief Complaint: Bright red blood per rectum History of Present Illness - Admitted From Admitted From:: Emergency department - History Obtained From Records Reviewed: Yes History obtained from: Patient Exam Limitations: None - History of Present Illness HPI Comment/Other: Patient is an 86-year-old gentleman with a past medical history significant for [id number] diabetes, peripheral neuropathy, osteoarthritis, colon cancer with metastasis to the lung diagnosed in 2012, aortic valve replacement and recent hospitalization with GI bleed who presented to the emergency department with a chief complaint of bright red blood per rectum. The patient was just admitted to the hospital on 02/19/2017 till 02/20/2017 when he presented with bright red blood per rectum. The patient underwent a tagged RBC study which did not show any active bleeding and a CT of the abdomen and pelvis which showed severe sigmoid diverticulosis without any evidence of mass or diverticulitis. The patient also underwent a colonoscopy which revealed severe diverticulosis in the descending colon and sigmoid colon but no evidence of recurrent colon cancer. The likely etiology of the patient's bleeding was thought to be diverticular or hemorrhoidal as retroflexed views revealed internal hemorrhoids on the colonoscopy. The patient had no further bleeding during the hospitalization and his hemoglobin did remain stable so he was discharged home in stable condition. The patient states that since returning home he had been feeling well and had had no further episodes of bleeding until this evening. He states that this evening around 4 PM he had a bowel movement which was slightly bloody. He states that he called Dr. Parsons the surgeon news operations manager who thought the patient may be constipated and having an internal hemorrhoid bleed and told him to get a stool softener. The patient states that he sent his to go get a stool softener when he began feeling a sort of discomfort in his left lower quadrant and had to go back to the bathroom. The patient states that he then had a bowel movement that was very bloody with 2 large softball size clots and bright red blood. The patient states there was about 2 points of blood. When the patient's returned they called 911 and the patient was brought into the emergency department. The patient does admit to being on aspirin but is not on any other blood thinners. The patient denies any alcohol or tobacco use. The patient denies any use of NSAIDs. The patient also states that he felt dizzy after his bloody bowel movements. The patient states that he felt a slight discomfort in his left lower quadrant but had no other significant pain. The patient denies any nausea or vomiting. The patient denies any recent diarrhea. Patient denies any headaches, blurred vision, runny nose, sore throat, nasal congestion, cough, fevers, chills, chest pain, shortness of air, orthopnea, PND , urinary urgency, urinary frequency, dysuria, joint pains, muscle aches, joint swelling, back pain, neck stiffness, recent unintentional weight loss, changes in his appetite or any focal neurologic deficits. On presentation to the emergency department the patient was afebrile, his heart rate was in the high 80s-90s and blood pressure was soft around 109/68 the patient was given a liter and half of fluid in the emergency department. The patient's lab work did reveal a drop in his hemoglobin from 11.1 on discharge on 02/20/2017 to 9.1 on presentation to the emergency department today. The patient did not have any further bleeding in the emergency department but given his drop in hemoglobin and bleeding prior to coming to the emergency department the patient was placed in observation for further monitoring of his hemoglobin and further monitoring for bleeding. History - Past Medical History Cardiovascular: reports: Valve disorder (Aortic valve replacement) Respiratory: reports: Other (Lung metastasis of colon cancer status post resection of lung) Neuro: reports: None Endocrine/Autoimmune: reports: Type 2 diabetes GI: reports: GERD, Other (Colon cancer with metastasis) : reports: Frequency Musculoskeletal: reports: Osteoarthritis (Status post bilateral knee replacements), Chronic back pain, Other (Peripheral neuropathy) MRSA Hx?: No Other Past Medical History: colon ca - Past Surgical History General: reports: Hiatal hernia repair Ortho: reports: Knee replacement Cardiovascular: reports: Lobectomy - Family & Social History Family History: Mother: , Alzheimer's Disease, Father: , CAD, CVA/TIA Living arrangement: At home Living Situation: With spouse/s.o. Social History Notes: Patient is originally from [place] he and his moved to [facility] many years ago as the patient found a job at [employer]. The patient is now retired from [employer] him and his have been for 70 years and they have 2 sons. 1 of his sons lives on [facility] and the other one lives in [place]. The patient did smoke a pipe for a number of years but quit more than 30 years ago. The patient has never used any illicit drugs nor does he drink alcohol. - POLST Patient has POLST: No POLST Status: Full Code Meds/Allgy - Home Medications Home Medications: Ambulatory Orders Medication Instructions Recorded Confirmed Aspirin [Ecotrin] 81 mg PO DAILY 01/05/14 02/23/17 Metformin HCl [Fortamet] 500 mg PO BIDWM 01/05/14 02/23/17 Oxycodone HCl/Acetaminophen 1 tab PO Q6H PRN 02/19/17 02/23/17 [Oxycodone-Acetaminophen 5-325] Senna [Senokot] 1 tab PO TID 02/23/17 02/23/17 - Allergies Allergies/Adverse Reactions: Allergies Allergy/AdvReac Type Severity Reaction Status Date / Time morphine Allergy Unknown Respiratory Verified 02/24/17 00:15 Review of Systems - Other Findings Other Findings: A comprehensive review of systems was performed the pertinent positives and negatives are stated above in the HPI and the remainder of the review of systems is negative. Exam - Vital Signs Reviewed Vital Signs: Yes Vital Signs: Vital Signs x48h Temp Pulse Resp BP Pulse Ox 02/24/17 00:56 36.6 C 97 16 123/59 L 97 - Physical Exam General Appearance: positive: No acute distress, Alert Eyes Bilateral: positive: Normal inspection, PERRL, EOMI, No lid inflammation, No scleral icterus, Other (Conjunctival pallor) ENT: positive: ENT inspection nml, Pharynx nml, Dry mucous membranes. negative : Purulent nasal drainage, Pharyngeal erythema, Oral lesions Neck: positive: Nml inspection, Thyroid nml, No JVD, Trachea midline. negative : Thyromegaly, Lymphadenopathy (R), Lymphadenopathy (L), Carotid bruit, Tracheal deviation Respiratory: positive: Chest non-tender, No respiratory distress, Breath sounds nml. negative: Wheezes, Rales, Rhonchi Cardiovascular: positive: Regular rate & rhythm, No murmur, No gallop Peripheral Pulses: positive: 2+ Abdomen: positive: Non-tender, No organomegaly, Nml bowel sounds, No distention. negative: Guarding, Rebound, Hepatomegaly Back: positive: Nml inspection. negative: CVA tenderness (R), CVA tenderness (L ) Skin: positive: No rash, Pallor. negative: Cyanosis, Diaphoresis Extremities: positive: Non-tender, Full ROM, Nml appearance, No pedal edema Neurologic/Psychiatric: positive: Oriented x3, CN's nml (2-12), Motor nml, Sensation nml, Mood/affect nml Conclusion/Plan - Problem List (1) Lower gastrointestinal bleeding Conclusion/Plan: Patient presented with bright red blood per rectum with clots. Patient had loss of 2 pints of blood at home via his rectum prior to arrival to the emergency department. Patient was just recently hospitalized and underwent CT scan of the abdomen and pelvis and tagged RBC scan which did not show any active bleeding but patient was found to have severe diverticulosis. Patient also underwent colonoscopy which did not show any signs of colon cancer or active bleeding but did reveal severe diverticulosis and internal hemorrhoids. The patient had no active bleeding and did not have any drop in his hemoglobin during the hospitalization therefore he was discharged home. Patient now returns with significant bleeding at home overnight. The patient hemoglobin has dropped from 11.1 at discharge to 9.1 today. Patient's blood pressure was borderline but he was not having any further bleeding on presentation to the emergency department. Patient is being placed in observation for further monitoring. Most likely etiology of the patient's GI bleeding is a diverticular bleed however patient does also have internal hemorrhoids and this could be a large internal hemorrhoid bleed. If the patient continues to bleed he will need a tagged RBC scan and repeat colonoscopy. If the patient's colonoscopy is negative and he continues to bleed patient may need an angiogram and possible IR guided cauterization. Plan: 2 large-bore IVs Type and cross Transfuse if hemoglobin less than 7 Monitor H&H every 6 hours Consult surgery for possible repeat colonoscopy Order tagged RBC scan to find source of bleeding IV Protonix twice daily IV fluids N.p.o. after midnight (2) Diabetes Conclusion/Plan: Patient has history of diabetes and blood glucose is elevated on presentation. Plan: Place on n.p.o. sliding scale insulin Monitor blood glucose before meals at bedtime Check hemoglobin A1c Qualifiers: Diabetes mellitus type: type 2 (3) Chronic pain Conclusion/Plan: Patient has history of chronic pain. Patient's pain is mostly in the back and legs due to peripheral neuropathy. Patient is on oxycodone at home and will be continued on oxycodone while he is hospitalized. 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 Patient had a recent CT scan of the abdomen and pelvis as well as a colonoscopy which did not reveal any recurrence of his colon cancer. The patient is due for a repeat CT scan of his chest as an outpatient in March Cancer appears to be stable at this time. It does not appear that the patient' s GI bleeding is secondary to colon cancer. - Lab Results Lab results reviewed: Yes Fish Bones: 02/24/17 00:27 02/23/17 19:50 Other Lab Results: Laboratory Results WBC 8.1 x10^3/uL (4.8-10.8) 02/24/17 00:27 RBC 2.71 10^6/uL (4.70-6.10) L 02/24/17 00:27 Hgb 8.5 g/dL (14.0-18.0) L 02/24/17 00:27 Hct 24.9 % (42.0-52.0) L 02/24/17 00:27 MCV 92.0 fL (80.0-94.0) 02/24/17 00: MCH 31.3 pg (27.0-31.0) H 02/24/17 00: MCHC 34.1 g/dL (32.0-36.0) 02/24/17 00:27 RDW 13.6 % (12.0-15.0) 02/24/17 00:27 Plt Count 208 10^3/uL (130-450) 02/24/17 00:27 MPV 8.1 fL (7.4-11.4) 02/24/17 00:27 Neut # 6.4 10^3/uL (1.5-6.6) 02/24/17 00:27 Lymph # 1.0 10^3/uL (1.5-3.5) L 02/24/17 00:27 [place] # 0.5 10^3/uL (0.0-1.0) 02/24/17 00:27 Eos # 0.1 10^3/uL (0.0-0.7) 02/24/17 00:27 Baso # 0.0 10^3/uL (0.0-0.1) 02/24/17 00:27 Absolute Nucleated RBC 0.00 x10^3/uL 02/24/17 00:27 Nucleated RBC % 0.0 /100WBC 02/24/17 00:27 PT 12.8 secs (9.9-12.6) H 02/23/17 19:50 INR 1.1 (0.8-1.2) 02/23/17 19:50 APTT 23.5 secs (24.9-33.3) L 02/23/17 19:50 Sodium 136 mmol/L (135-145) 02/23/17 19:50 Potassium 4.2 mmol/L (3.5-5.0) 02/23/17 19:50 Chloride 102 mmol/L (101-111) 02/23/17 19:50 Carbon Dioxide 22 mmol/L (21-32) 02/23/17 19:50 Anion Gap 12.0 (6-13) 02/23/17 19:50 BUN 22 mg/dL (6-20) H 02/23/17 19:50 Creatinine 1.2 mg/dL (0.6-1.2) 02/23/17 19:50 Estimated GFR (MDRD) 57 (>89) L 02/23/17 19:50 Glucose 208 mg/dL (70-100) H 02/23/17 19:50 Calcium 8.4 mg/dL (8.5-10.3) L 02/23/17 19:50 Total Bilirubin 0.3 mg/dL (0.2-1.0) 02/23/17 19:50 AST 11 IU/L (10-42) 02/23/17 19:50 ALT < 10 IU/L (10-60) L 02/23/17 19:50 Alkaline Phosphatase 34 IU/L (42-121) L 02/23/17 19:50 Total Protein 6.0 g/dL (6.7-8.2) L 02/23/17 19:50 Albumin 3.0 g/dL (3.2-5.5) L 02/23/17 19:50 Globulin 3.0 g/dL (2.1-4.2) 02/23/17 19:50 Albumin/Globulin Ratio 1.0 (1.0-2.2) 02/23/17 19:50 Lipase 21 U/L (22-51) L 02/23/17 19:50 Blood Type O POSITIVE 02/23/17 19:50 Antibody Screen NEGATIVE 02/23/17 19:50 - Diagnostic Imaging Results Diagnostic Imaging Results: positive: Final report reviewed Diagnostic Imaging Results Comments: None for this emergency room visit Issues/Core Measures - Anticipated LOS Anticipated Stay Length: Less than 2 midnights - DVT/VTE - Prophylaxis VTE/DVT Device ordered at admit?: Yes
[2017-02-24 05:34] LABS: BASOPHILS % (AUTO) 0.7 %; EOSINOPHILS # (AUTO) 0.2 10^3/uL (0.0-0.7); EOSINOPHILS % (AUTO) 3.2 %; HCT - HEMATOCRIT 21.5 % (42.0-52.0); HGB - HEMOGLOBIN 7.3 g/dL (14.0-18.0); LYMPHOCYTES % (AUTO) 17.5 %; MEAN CORPUSCULAR HEMOGLOBIN 31.3 pg (27.0-31.0); MEAN CORPUSCULAR HGB CONC 34.2 g/dL (32.0-36.0); MEAN CORPUSCULAR VOLUME 91.6 fL (80.0-94.0); MONOCYTES # (AUTO) 0.5 10^3/uL (0.0-1.0); NEUTROPHILS # (AUTO) 4.1 10^3/uL (1.5-6.6); NEUTROPHILS % (AUTO) 70.6 %; RED BLOOD COUNT 2.35 10^6/uL (4.70-6.10); RED CELL DISTRIBUTION WIDTH 13.4 % (12.0-15.0); UNCORRECTED WHITE BLOOD COUNT 5.8 x10^3/uL; WHITE BLOOD COUNT 5.8 x10^3/uL (4.8-10.8)
[2017-02-24 05:41] LABS: INR 1.1 (0.8-1.2); PT - PROTHROMBIN TIME 12.2 secs (9.9-12.6)
[2017-02-24 05:54] LABS: ALBUMIN/GLOBULIN RATIO 1.1 (1.0-2.2); BILIRUBIN,TOTAL < 0.2 mg/dL (0.2-1.0); BUN - BLOOD UREA NITROGEN 21 mg/dL (6-20); CALCIUM 7.8 mg/dL (8.5-10.3); CARBON DIOXIDE - CO2 23 mmol/L (21-32); CHLORIDE 110 mmol/L (101-111); GFR - MDRD 71 (>89); GLUCOSE 102 mg/dL (70-100); SODIUM 139 mmol/L (135-145); TOTAL PROTEIN 5.1 g/dL (6.7-8.2)
[2017-02-24 06:23] LABS: HEMOGLOBIN A1C 0.34 g/dL
[2017-02-24] MEDS: SODIUM CHLORIDE FLUSH 0.9% 10 ML SYRINGE IVP SCH ×4 (06:49→17:12)
[2017-02-24] MEDS: POLYETHYLENE GLYCOL 3350 17 GM PACKET PO SCH (08:39)
[2017-02-24] MEDS: DEXTROSE 5%-0.9% NACL 1,000 ML IV SCH ×2 (09:00→17:12)
[2017-02-24 12:01] LABS: BASOPHILS # (AUTO) 0.1 10^3/uL (0.0-0.1); BASOPHILS % (AUTO) 0.8 %; EOSINOPHILS # (AUTO) 0.1 10^3/uL (0.0-0.7); EOSINOPHILS % (AUTO) 2.2 %; HCT - HEMATOCRIT 24.7 % (42.0-52.0); HGB - HEMOGLOBIN 8.4 g/dL (14.0-18.0); LYMPHOCYTES # (AUTO) 1.1 10^3/uL (1.5-3.5); LYMPHOCYTES % (AUTO) 16.5 %; MEAN CORPUSCULAR HEMOGLOBIN 30.9 pg (27.0-31.0); MEAN CORPUSCULAR HGB CONC 33.9 g/dL (32.0-36.0); MEAN CORPUSCULAR VOLUME 91.2 fL (80.0-94.0); MEAN PLATELET VOLUME 8.2 fL (7.4-11.4); MONOCYTES # (AUTO) 0.4 10^3/uL (0.0-1.0); MONOCYTES % (AUTO) 6.5 %; NEUTROPHILS # (AUTO) 4.8 10^3/uL (1.5-6.6); RED BLOOD COUNT 2.71 10^6/uL (4.70-6.10); RED CELL DISTRIBUTION WIDTH 13.5 % (12.0-15.0); UNCORRECTED WHITE BLOOD COUNT 6.4 x10^3/uL; WHITE BLOOD COUNT 6.4 x10^3/uL (4.8-10.8)
--- NOTE | 2017-02-24 12:23 | Nuclear Medicine Prelim Report ---
Exam: NM GI BLEED/TAGGED RBC IMPRESSION: Normal study. No scintigraphic evidence of active GI bleed. ELENA The call report notification system was initiated by Dr. Vitaly Adams at 12:04 hrs on . The above findings were discussed with Dr Leone by Dr. Vitaly Adams at 12:21 hrs on 02/11 07/28. SITE ID: [id number]
--- NOTE | 2017-02-24 12:28 | Nuclear Medicine Report ---
EXAM: GASTROINTESTINAL BLEED LOCALIZATION STUDY WITH VASCULAR FLOW STUDY EXAM DATE: 02/24/2017 11:40 AM. CLINICAL HISTORY: GI bleed. COMPARISON: Prior GI bleeds study, 02/19/2017. TECHNIQUE: The patient's own red blood cells were labeled with 26 mCi Tc-99m pertechnetate according to department protocol. Following the administration of the radiolabeled red blood cells, dynamic belen w images were acquired for the initial 2 minutes. Next, dynamic gamma camera imaging for a total of 6 0 minutes post injection was acquired from the anterior projection. Postvoid images were also acquire d. FINDINGS: No foci of progressive antegrade or retrograde radiotracer activity to suggest etiology of GI bleed. Physiological uptake in vasculature, spleen, liver, and bladder. IMPRESSION: Normal study. No scintigraphic evidence of active GI bleed. RADIA The call report notification system was initiated by Dr. Vitaly Adams at 12:04 hrs on 7. The above findings were discussed with Dr Leone by Dr. Vitaly Adams at 12:21 hrs on 02/11 07/28. Referring Provider Line: [phone] SITE ID: [id number]
[2017-02-24] MEDS ORDERED: IOPAMIDOL-300 100 ML VIAL ONE (13:38)
[2017-02-24] MEDS ORDERED: IOPAMIDOL-300 100 ML VIAL IVP ONE (13:57)
[2017-02-24 18:04] LABS: BASOPHILS % (AUTO) 0.8 %; EOSINOPHILS # (AUTO) 0.2 10^3/uL (0.0-0.7); EOSINOPHILS % (AUTO) 3.1 %; HCT - HEMATOCRIT 23.2 % (42.0-52.0); HGB - HEMOGLOBIN 7.7 g/dL (14.0-18.0); LYMPHOCYTES # (AUTO) 0.9 10^3/uL (1.5-3.5); LYMPHOCYTES % (AUTO) 16.8 %; MEAN CORPUSCULAR HEMOGLOBIN 30.7 pg (27.0-31.0); MEAN CORPUSCULAR HGB CONC 33.3 g/dL (32.0-36.0); MEAN CORPUSCULAR VOLUME 92.1 fL (80.0-94.0); MEAN PLATELET VOLUME 7.9 fL (7.4-11.4); MONOCYTES # (AUTO) 0.4 10^3/uL (0.0-1.0); MONOCYTES % (AUTO) 7.4 %; NEUTROPHILS % (AUTO) 71.9 %; RED BLOOD COUNT 2.52 10^6/uL (4.70-6.10); RED CELL DISTRIBUTION WIDTH 13.6 % (12.0-15.0); UNCORRECTED WHITE BLOOD COUNT 5.6 x10^3/uL; WHITE BLOOD COUNT 5.6 x10^3/uL (4.8-10.8)
--- NOTE | 2017-02-24 19:17 | CT Report ---
CT ANGIOGRAM ABDOMEN AND PELVIS WITH CONTRAST: 02/24/2017 CLINICAL INDICATION: Lower GI bleed, question contrast extravasation. Axial CT images of the abdomen and pelvis were obtained with 100 mL Isovue-300 intravenously. Sagitt al and coronal 3D reconstructions were performed. In accordance with CT protocol optimization, one or more of the following dose reduction techniques w ere utilized for this exam: automated exposure control, adjustment of mA and/or KV based on patient size, or use of iterative reconstructive technique. COMPARISON: 02/19/2017 Limited evaluation of the lung bases demonstrates left basilar consolidation. ABDOMEN: There is mild atherosclerotic disease of the abdominal aorta. The celiac, superior mesente kami, and inferior mesenteric arteries are patent. The iliac arteries are patent. There is no eviden ce of contrast extravasation. The liver and kidneys demonstrate cysts. The spleen, pancreas, and ad renal glands are unremarkable, allowing for the phase of contrast enhancement. Cholelithiasis is pre sent. No bowel dilatation, free gas, or free fluid is present. Surgical anastomosis is seen in the ascending colon. Extensive diverticulosis is present. No free gas, free fluid, or adenopathy is spencer reciated. No small bowel dilatation is seen. Osseous structures demonstrate degenerative changes. The prostate is enlarged. IMPRESSION: 1. NO EVIDENCE OF ACTIVE CONTRAST EXTRAVASATION ON CT ANGIOGRAPHY OF THE ABDOMEN AND PELVIS. 2. LEFT LOWER LOBE INFILTRATE. 3. EXTENSIVE DIVERTICULOSIS. POSTOPERATIVE CHANGES IN THE ASCENDING COLON. JOB #: [id number] EXT JOB #:[id number]
[2017-02-25 00:51] LABS: BASOPHILS # (AUTO) 0.1 10^3/uL (0.0-0.1); BASOPHILS % (AUTO) 1.2 %; EOSINOPHILS # (AUTO) 0.2 10^3/uL (0.0-0.7); EOSINOPHILS % (AUTO) 4.3 %; HCT - HEMATOCRIT 22.7 % (42.0-52.0); HGB - HEMOGLOBIN 7.6 g/dL (14.0-18.0); LYMPHOCYTES # (AUTO) 0.9 10^3/uL (1.5-3.5); MEAN CORPUSCULAR HEMOGLOBIN 31.1 pg (27.0-31.0); MEAN CORPUSCULAR HGB CONC 33.6 g/dL (32.0-36.0); MEAN CORPUSCULAR VOLUME 92.6 fL (80.0-94.0); MEAN PLATELET VOLUME 8.2 fL (7.4-11.4); MONOCYTES # (AUTO) 0.4 10^3/uL (0.0-1.0); MONOCYTES % (AUTO) 7.1 %; NEUTROPHILS % (AUTO) 71.4 %; RED BLOOD COUNT 2.45 10^6/uL (4.70-6.10); RED CELL DISTRIBUTION WIDTH 13.2 % (12.0-15.0); UNCORRECTED WHITE BLOOD COUNT 5.6 x10^3/uL; WHITE BLOOD COUNT 5.6 x10^3/uL (4.8-10.8)
[2017-02-25] MEDS: DEXTROSE 5%-0.9% NACL 1,000 ML IV SCH ×3 (01:00→19:23)
[2017-02-25 01:05] LABS: ALBUMIN/GLOBULIN RATIO 1.1 (1.0-2.2); BILIRUBIN,TOTAL 0.4 mg/dL (0.2-1.0); BUN - BLOOD UREA NITROGEN 12 mg/dL (6-20); CALCIUM 7.9 mg/dL (8.5-10.3); CARBON DIOXIDE - CO2 25 mmol/L (21-32); CHLORIDE 110 mmol/L (101-111); CREATININE 0.9 mg/dL (0.6-1.2); GFR - MDRD 80 (>89); GLUCOSE 129 mg/dL (70-100); POTASSIUM 3.7 mmol/L (3.5-5.0); SODIUM 140 mmol/L (135-145); TOTAL PROTEIN 5.6 g/dL (6.7-8.2)
[2017-02-25] MEDS: PANTOPRAZOLE 40 MG VIAL IVP SCH ×2 (06:26→16:10)
[2017-02-25] MEDS: SODIUM CHLORIDE FLUSH 0.9% 10 ML SYRINGE IVP SCH ×3 (06:26→20:55)
--- NOTE | 2017-02-25 06:58 | PROVIDER PROGRESS NOTE ---
Refractive Surgeon Note - Refractive Surgeon Note Refractive Surgeon Note: Noted started in error. no note needed. Pennie Milligan MD
[2017-02-25 07:01] LABS: BASOPHILS % (AUTO) 0.9 %; EOSINOPHILS # (AUTO) 0.2 10^3/uL (0.0-0.7); EOSINOPHILS % (AUTO) 4.3 %; HCT - HEMATOCRIT 21.1 % (42.0-52.0); HGB - HEMOGLOBIN 7.3 g/dL (14.0-18.0); LYMPHOCYTES # (AUTO) 0.6 10^3/uL (1.5-3.5); LYMPHOCYTES % (AUTO) 13.6 %; MEAN CORPUSCULAR HEMOGLOBIN 31.7 pg (27.0-31.0); MEAN CORPUSCULAR HGB CONC 34.7 g/dL (32.0-36.0); MEAN CORPUSCULAR VOLUME 91.4 fL (80.0-94.0); MEAN PLATELET VOLUME 7.7 fL (7.4-11.4); MONOCYTES # (AUTO) 0.3 10^3/uL (0.0-1.0); MONOCYTES % (AUTO) 6.8 %; NEUTROPHILS # (AUTO) 3.2 10^3/uL (1.5-6.6); NEUTROPHILS % (AUTO) 74.4 %; RED BLOOD COUNT 2.31 10^6/uL (4.70-6.10); RED CELL DISTRIBUTION WIDTH 13.4 % (12.0-15.0); UNCORRECTED WHITE BLOOD COUNT 4.4 x10^3/uL; WHITE BLOOD COUNT 4.4 x10^3/uL (4.8-10.8)
[2017-02-25] MEDS: INSULIN ASPART 300 UNIT/3 ML PEN SUBQ SCH ×4 (08:35→20:54)
[2017-02-25] MEDS: POLYETHYLENE GLYCOL 3350 17 GM PACKET PO SCH (10:03)
[2017-02-25] MEDS: cefTRIAXone 1 GM in SODIUM CHLORIDE 0.9% MINIBAG 100 ML IV SCH (10:03)
--- NOTE | 2017-02-25 12:53 | CONSULTATION NOTE ---
DATE OF CONSULTATION: 02/24/2017 00:00:00 REQUESTING PROVIDER: Triston Noble MD REASON FOR CONSULTATION: Gastrointestinal bleed. HISTORY OF PRESENT ILLNESS: This is an 86-year-old very pleasant gentleman who had presented to the emergency department last week complaining of a large amount of bright red blood followed by blood clot per rectum. He underwent a CT scan of the abdomen, which was negative, and subsequently a tagged red blood cell scan which was also negative. Subsequent to that, he underwent colonoscopy performed by myself last Thursday, which did not demonstrate any active bleeding or any blood in the colon at all; his anastomosis was visualized and without signs of recurrent disease. He was noted to have severe diverticulosis and internal hemorrhoids. The patient was discharged home and yesterday again had an episode of bright red blood per rectum after having a small bowel movement, followed by a large amount of blood clots. He denies any recent constipation and has been taking stool softeners. He does have a history of colon cancer, with a right hemicolectomy being performed at an outside institution in 2010. Upon discharge from the hospital on the , his hemoglobin and hematocrit were 11 and 32, and upon evaluation in the emergency department, his hemoglobin and hematocrit were 9 and 27. He has had serial H and H's while in the hospital and this morning his H and H are 7.3/21.5. He has undergone a repeat bleeding scan, which was again negative. He has had subsequent dark bloody bowel movements rather than the bright color he had previously noted. He does not have any symptoms consistent with peptic ulcer disease and denies black or melanotic stools. The patient has remained hemodynamically stable. He did complain of mild left lower quadrant pain associated with his recent episode of blood per rectum but this has resolved. PAST MEDICAL HISTORY: Consists of history of aortic valve disorder status post aortic valve replacement, history of metastatic lung cancer with resection of portion of his lung, type 2 diabetes, history of GERD; although he denies any recent episodes; osteoarthritis, history of colon cancer. SURGICAL HISTORY: Right hemicolectomy, partial lobectomy, hiatal hernia repair. SOCIAL HISTORY: The patient is and lives with his . PHYSICAL EXAMINATION VITAL SIGNS: Temperature is 36.7, blood pressure 115/57, heart rate is 78, respiratory rate of 17, O2 saturation 93% on room air. GENERAL: The patient is awake, alert, oriented x3, in no acute distress. He is of average build. CARDIOVASCULAR: Regular rate and rhythm. CHEST: Clear to auscultation bilaterally without rhonchi or wheezing. ABDOMEN: Soft, nondistended, very slightly tender to palpation in the pelvic and left lower quadrant region. EXTREMITIES: Well perfused. LABORATORY VALUES: White count is 6.4, hemoglobin 8.4/24.7 this morning, platelets 205. INR 1.1. Sodium 139, potassium 4.0, chloride 110, bicarbonate 23 , BUN 21, creatinine 1.0, and GFR 71. The patient did complain of mild left lower quadrant pain associated with his recent episode of blood per rectum. ASSESSMENT: This is an 86-year-old gentleman with a recurrent gastrointestinal bleed. PLAN: It appears that the patient has likely again stopped bleeding spontaneously. The most likely source of his GI bleed is associated with his severe diverticulosis. It is less likely secondary to his internal hemorrhoids or an upper GI source, given the description of the bleeding. I would recommend obtaining a CT angiogram of the abdomen and pelvis to determine if there is any persistent active bleeding. If this were positive, then an interventional radiology directed embolization would be indicated. I briefly discussed with the patient that if the bleeding is determined to be related to his severe diverticulosis, he may require resection of the sigmoid colon. Given his age and comorbidities, of course, this will be reserved for severe or persistently recurring bleeding. JOB #: [id number] EXT JOB #:[id number] GE
[2017-02-25] MEDS: SODIUM CHLORIDE FLUSH 0.9% 10 ML SYRINGE IVP PRN (16:10)
--- NOTE | 2017-02-25 17:43 | PROVIDER PROGRESS NOTE ---
Assessment/Plan - Problem List (1) Lower gastrointestinal bleeding Assessment/Plan: No bleeding recurrence. If bleeding recurs while here being treated for pneumonia, will have surgery re- eval, poss repeat colonoscopy, poss nuclear scan reimaging. Watching his dropping Hgb, to determine if he will require a transfusion, or order iron replacement po. (2) CAP (community acquired pneumonia) Qualifiers: Laterality: left Assessment/Plan: Pt on iv antibiotics. No sputum was obtainable. Will treat for an empiric 7-10 day course. - Current Meds Current Meds: Current Medications Generic Name Dose Route Start Last Admin Trade Name Freq PRN Reason Stop Dose Admin Dextrose/Sodium Chloride 1,000 mls @ 125 mls/hr 02/24/17 09:00 02/25/17 10:35 D5ns IV 125 mls/hr .Q8H [facility] Infusion Ceftriaxone Sodium 1 gm/ 100 mls @ 200 mls/hr 02/25/17 08:00 02/25/17 10:35 Sodium Chloride IV Infused DAILY [facility] Infusion Insulin Aspart 1 - 5 unit 02/25/17 08:00 02/25/17 17:35 Novolog SUBQ Not Given 0800,1200,1700,2100 [facility] Protocol Pantoprazole Sodium 40 mg 02/23/17 23:45 02/25/17 16:10 Protonix IVP 40 mg BIDAC [facility] Administration Polyethylene Glycol 17 gm 02/24/17 09:00 02/25/17 10:03 Miralax PO Not Given DAILY [facility] Sodium Chloride 10 ml 02/23/17 23:43 02/25/17 16:10 Normal Saline Flush 0.9% IVP 10 ml PRN PRN Administration NEEDED PER PROVIDER ORDERS Sodium Chloride 10 ml 02/24/17 06:00 02/25/17 12:07 Normal Saline Flush 0.9% IVP Not Given Q8HR [facility] - Lab Result Fish Bone Diagrams: 02/25/17 06:50 02/25/17 00:42 - Additional Planning My Orders: My Active Orders 02/25/17 CUL, RESPIRATORY [RM] Urgent 02/25/17 08:00 cefTRIAXone [Rocephin] 1 gm Sodium Chloride 0.9% Minibag [Normal Saline 0.9% Minibag] 100 ml IV DAILY Subjective - Subjective Patient Reports: Resting Comfortably Nursing Reports: No Complaints, Other (No bleeding or melenotic stools) Objective Vital Signs: Vital Signs - 24 hr 02/24/17 02/25/17 02/25/17 20:23 01:00 05:00 Temperature 36.9 C 36.6 C 36.7 C Heart Rate [ 72 77 73 Brachial] Respiratory 16 16 16 Rate Blood Pressure 122/54 L 118/56 L 117/52 L [Right Brachial artery] O2 Saturation 100 98 97 02/25/17 02/25/17 02/25/17 08:33 13:00 16:05 Temperature 36.5 C 36.4 C L 36.6 C Heart Rate [ 92 87 79 Brachial] Respiratory 16 16 18 Rate Blood Pressure 108/55 L 116/61 107/55 L [Right Brachial artery] O2 Saturation 100 100 100 Oxygen O2 Source Room air I&O (Last 24 Hrs): Intake and Output Totals x24h 02/23/17 02/24/17 02/25/17 23:59 23:59 23:59 Intake Total 3339.167 Output Total 510 1575 Balance -510 1764.167 General: Alert HEENT: Mucous membr. moist/pink Neck: No JVD Cardiovascular: Regular rate, No murmurs Respiratory: No respiratory distress, Breath sounds nml Abdomen: Soft, No tenderness Extremities: No edema - Results Results: Laboratory Results WBC 4.4 x10^3/uL (4.8-10.8) L 02/25/17 06:50 RBC 2.31 10^6/uL (4.70-6.10) L 02/25/17 06:50 Hgb 7.3 g/dL (14.0-18.0) L 02/25/17 06:50 Hct 21.1 % (42.0-52.0) L 02/25/17 06:50 MCV 91.4 fL (80.0-94.0) 02/25/17 06:50 MCH 31.7 pg (27.0-31.0) H 02/25/17 06:50 MCHC 34.7 g/dL (32.0-36.0) 02/25/17 06:50 RDW 13.4 % (12.0-15.0) 02/25/17 06:50 Plt Count 181 10^3/uL (130-450) 02/25/17 06:50 MPV 7.7 fL (7.4-11.4) 02/25/17 06:50 Neut # 3.2 10^3/uL (1.5-6.6) 02/25/17 06:50 Lymph # 0.6 10^3/uL (1.5-3.5) L 02/25/17 06:50 Cidra # 0.3 10^3/uL (0.0-1.0) 02/25/17 06:50 Eos # 0.2 10^3/uL (0.0-0.7) 02/25/17 06:50 Baso # 0.0 10^3/uL (0.0-0.1) 02/25/17 06:50 Absolute Nucleated RBC 0.00 x10^3/uL 02/25/17 06:50 Nucleated RBC % 0.0 /100WBC 02/25/17 06:50 PT 12.2 secs (9.9-12.6) 02/24/17 05:20 INR 1.1 (0.8-1.2) 02/24/17 05:20 APTT 23.5 secs (24.9-33.3) L 02/23/17 19:50 Sodium 140 mmol/L (135-145) 02/25/17 00:42 Potassium 3.7 mmol/L (3.5-5.0) 02/25/17 00:42 Chloride 110 mmol/L (101-111) 02/25/17 00:42 Carbon Dioxide 25 mmol/L (21-32) 02/25/17 00:42 Anion Gap 5.0 (6-13) L 02/25/17 00:42 BUN 12 mg/dL (6-20) 02/25/17 00:42 Creatinine 0.9 mg/dL (0.6-1.2) 02/25/17 00:42 Estimated GFR (MDRD) 80 (>89) L 02/25/17 00:42 Glucose 129 mg/dL (70-100) H 02/25/17 00:42 POC Whole Bld Glucose 134 mg/dL (70 - 100) H 02/25/17 16:48 Glycated Hemoglobin 6.1 % (4.6-6.2) 02/24/17 05:20 Estim Average Glucose 128 (70-100) H 02/24/17 05:20 Calcium 7.9 mg/dL (8.5-10.3) L 02/25/17 00:42 Total Bilirubin 0.4 mg/dL (0.2-1.0) 02/25/17 00:42 AST 11 IU/L (10-42) 02/25/17 00:42 ALT < 10 IU/L (10-60) L 02/25/17 00:42 Alkaline Phosphatase 38 IU/L (42-121) L 02/25/17 00:42 Troponin I < 0.04 ng/mL (<0.49) 02/25/17 06:50 Total Protein 5.6 g/dL (6.7-8.2) L 02/25/17 00:42 Albumin 2.9 g/dL (3.2-5.5) L 02/25/17 00:42 Globulin 2.7 g/dL (2.1-4.2) 02/25/17 00:42 Albumin/Globulin Ratio 1.1 (1.0-2.2) 02/25/17 00:42 Lipase 21 U/L (22-51) L 02/23/17 19:50 Blood Type O POSITIVE 02/23/17 19:50 Antibody Screen NEGATIVE 02/23/17 19:50 - Procedures Procedures: Procedures INSPECTION OF LOWER INTESTINAL TRACT, ENDO (02/19/17)
[2017-02-26] MEDS: DEXTROSE 5%-0.9% NACL 1,000 ML IV SCH ×2 (03:06→11:18)
[2017-02-26 06:06] LABS: ALBUMIN/GLOBULIN RATIO 0.9 (1.0-2.2); BILIRUBIN,TOTAL 0.3 mg/dL (0.2-1.0); BUN - BLOOD UREA NITROGEN 9 mg/dL (6-20); CALCIUM 7.8 mg/dL (8.5-10.3); CARBON DIOXIDE - CO2 24 mmol/L (21-32); CHLORIDE 110 mmol/L (101-111); GFR - MDRD 71 (>89); GLUCOSE 122 mg/dL (70-100); POTASSIUM 3.4 mmol/L (3.5-5.0); SODIUM 140 mmol/L (135-145); TOTAL PROTEIN 5.4 g/dL (6.7-8.2)
[2017-02-26] MEDS: SODIUM CHLORIDE FLUSH 0.9% 10 ML SYRINGE IVP SCH ×3 (06:25→15:37)
[2017-02-26] MEDS: PANTOPRAZOLE 40 MG VIAL IVP SCH ×2 (06:25→15:37)
[2017-02-26] MEDS: cefTRIAXone 1 GM in SODIUM CHLORIDE 0.9% MINIBAG 100 ML IV SCH (08:55)
[2017-02-26 09:28] LABS: BASOPHILS % (AUTO) 0.6 %; EOSINOPHILS # (AUTO) 0.2 10^3/uL (0.0-0.7); EOSINOPHILS % (AUTO) 2.6 %; HGB - HEMOGLOBIN 8.6 g/dL (14.0-18.0); LYMPHOCYTES # (AUTO) 1.1 10^3/uL (1.5-3.5); LYMPHOCYTES % (AUTO) 16.6 %; MEAN CORPUSCULAR HEMOGLOBIN 30.9 pg (27.0-31.0); MEAN CORPUSCULAR HGB CONC 34.3 g/dL (32.0-36.0); MEAN CORPUSCULAR VOLUME 90.3 fL (80.0-94.0); MEAN PLATELET VOLUME 8.2 fL (7.4-11.4); MONOCYTES # (AUTO) 0.4 10^3/uL (0.0-1.0); MONOCYTES % (AUTO) 6.3 %; NEUTROPHILS # (AUTO) 5.1 10^3/uL (1.5-6.6); NEUTROPHILS % (AUTO) 73.9 %; RED BLOOD COUNT 2.77 10^6/uL (4.70-6.10); RED CELL DISTRIBUTION WIDTH 13.3 % (12.0-15.0); UNCORRECTED WHITE BLOOD COUNT 6.9 x10^3/uL; WHITE BLOOD COUNT 6.9 x10^3/uL (4.8-10.8)
[2017-02-26] MEDS: POLYETHYLENE GLYCOL 3350 17 GM PACKET PO SCH (09:40)
[2017-02-26] MEDS: INSULIN ASPART 300 UNIT/3 ML PEN SUBQ SCH ×2 (09:40→11:24)
[2017-02-26] MEDS: SODIUM CHLORIDE FLUSH 0.9% 10 ML SYRINGE IVP PRN (15:11)
--- NOTE | 2017-02-26 15:17 | Discharge Plan ---
Discharge Plan Disposition: Home, Self Care Condition: Good Prescriptions: Levofloxacin [Levaquin] 500 mg PO DAILY #6 tablet Diet: Regular Activity Restrictions: Activity as Tolerated Shower Restrictions: No Driving Restrictions: No Additional Instructions or Follow Up instructions: This is now the second time you have been admitted for lower GI bleeding. The first time you had a CAT scan of the abdomen with dye to see if we could figure out where your bleeding from and that was negative. You then had a second CT of the abdomen with nuclear medicine dye and again there was no bleeding but it did show that you had some changes of pneumonia in the left lower lung. We also did a colonoscopy on you the last time and found severe diverticulosis but no active bleeding. You were sent home and returned again with yet another episode of gross bloody stool. Your hemoglobin started out at 11 pints, drifted down to 7.3 pints but this morning is 8.6. Unfortunately, we still do not know where exactly your bleeding from. Our goal was to keep you stable and transfuse you if you needed it. You have not needed transfusion. Dr. Parsons, General Surgery, has consulted on your case and she would like you to stop your aspirin. She would like to see you in the next 2 weeks. Make sure you see your primary care provider Lorena Jack because we are going to ask her to send you to [place] for a video endoscopy. She is not in the office right now and I have spoken to Dr. Malave who is in her office. He is hoping to see you on 03/02/17 and their office will call you. We would also like you to be seen by a [facility] applications support engineer in consultation as well. We recognize that this is very scary because we still have not figured out where you are bleeding from. If you bleed again, you wish to go directly to [place] as opposed to our emergency room. While I think this is a great plan , the ambulance staff will have to use their judgment about how stable you are before they send you directly over. I am prescribing levaquin to complete your therapy for pneumonia. I am stopping the aspirin at Dr. Parsons's request. No Smoking: If you smoke, Please STOP! Call for help. Follow-up with: Daisy Jack PA [Primary Care Provider] -
[2017-02-26 15:39] VITALS: BP 105/53
--- NOTE | 2017-02-27 08:22 | DISCHARGE SUMMARY ---
DATE OF ADMISSION: 02/24/2017 DATE OF DISCHARGE: 02/26/2017 PRIMARY CARE PROVIDERS: Daisy Jack PA-C; Yonis Malave MD. DISCHARGE DIAGNOSES 1. Acute lower gastrointestinal bleed. 2. Acute blood loss anemia to duglas of 7.3 grams hemoglobin. 3. Type 2 diabetes mellitus, without complications, controlled. 4. Pneumonia, left lower lung. 5. History of colon cancer stage IV with metastases the lung. DISCHARGE MEDICATIONS 1. Levaquin 500 mg p.o. daily, #6, which is a new prescription. 2. Metformin 500 mg p.o. b.i.d. 3. Oxycodone 5 mg with acetaminophen 325 mg, 1 q.6h. p.r.n. pain. 4. MiraLax 15 grams p.o. daily. 5. Senokot 8.6 mg p.o. b.i.d. p.r.n. PRINCIPAL PROCEDURES: Nuclear medicine GI bleed scan showing no foci of progressive antegrade or retr ograde radiotracer activity to suggest etiology of his GI bleed. This is unchanged from his previous nuclear medicine report from 02/19/2017. However, this scan does show left lower lobe infiltrate. HOSPITAL COURSE: This is a nohemy gentleman who is 86 years old with history of colon cancer identifi ed on a colonoscopy in 2010. It was a screening colonoscopy. He underwent a left hemicolectomy. Subse quently was found to have a left lung lesion and that was resected. He is felt to be disease free. He presented 02/19/2017 with bloody stool. At that time, a nuclear medicine tagged cell scan was negati ve, and a colonoscopy was done by Dr. Parsons. She found extensive diverticulosis but no masses, no source of bleeding. He was sent home. Returned again with another massive bloody bowel movement, whic h was quite frightening and even worse than the first one. He had another nuclear medicine tagged hope l scan, and it was negative. Dr. Parsons again saw the patient. This nuclear medicine study shows le ft lower lobe infiltrate. It is felt that the patient will need a higher level of care with regards to diagnostic procedures. Michelet Parsons would like him referred to [facility], and most likely the patie nt will need to undergo some type of imaging such as a video endoscopy. She has asked that we stop hi s aspirin. She will see him in followup in the next 1-2 weeks. I have also asked him to see Lorena ceballos, his primary care provider. She is out of the office at this time, and I have made contact with Dr. Malave in her office. Dr. Malave will see the patient most likely Thursday03/02/2017. Dr. Malave will facilitate the referrals needed to [facility], as well as the video end oscopy. The patient is very scared about having to go home. If he could just stay here or be transferred imme diately to [place] it would make him so happy. He is afraid of the lower GI bleed recurring with s ignificant hemorrhage. I explained to him that this is definitely a possibility, but right now he has been hemodynamically stable. He has had 3 bowel movements today. None of them have been bloody. Hemo globin was 7.3 this morning and increased to 8.6 this afternoon. He is tolerating his food well, ambu lating to the bathroom without any assistance. As such, we are going to send him home. He says that he would like to be transferred to [place] im mediately if he has to come back in again, and I said that I would make sure that is dictated in this discharge summary. He is also thinking that if the ambulance comes that he was going to ask the [facility] deric to take him directly to [place] as well. I have warned him that depending on his hemodynamic stability, they may or may not take him straight to [place]. In any case, blood pressure is 117/60 with a temperature 36.6, pulse 88, respirations 16, 97% on room air. He is a tall, lanky, elderly gentleman with perseveration. I think there might be some evidence of memory loss in that he repeats the same event several times in the span of the time I am with him . His lungs are clear. He has a regular rate and rhythm. Soft systolic murmur. The abdomen is benign in that it has normal bowel sounds. No rebound or guarding and no masses. He is able to walk with jammie susi ambulation in his room and in the hallway with standby assist. He uses the bathroom with standby assist and using his IV pole for balance. Greater than 30 minutes was spent coordinating care, speaking to Dr. Malave, and speaking to the nurs e as well as the patient and his . Because he had an identified left lower lung infiltrate on CT, he will complete the therapy for that with Levaquin. Clinically, he did not have a white cell count, no fever, and it may be postoperative changes, but unclear. That will need to be followed up by his primary care provider with a repeat CT of the chest. JOB #: [id number] EXT JOB #:[id number]
== END 2017-02-26 16:45 | disposition home or self-care (01) | DRG 377 ==
LOC: EDUNIT# → ED 19:39 → OBS 23:43 → OBSVTOIN 02-24 18:26 → MS2 02-24 18:54
PROVIDERS: ADMIT Internal Medicine; ATTEND Internal Medicine
DX: K57.31 Diverticulosis of large intestine without perforation or abscess with bleeding (principal); J18.9 Pneumonia, unspecified organism; I38 Endocarditis, valve unspecified; D62 Acute posthemorrhagic anemia; R35.0 Frequency of micturition; E11.42 Type 2 diabetes mellitus with diabetic polyneuropathy; G89.29 Other chronic pain; M54.9 Dorsalgia, unspecified; K21.9 Gastro-esophageal reflux disease without esophagitis; K64.8 Other hemorrhoids; M19.90 Unspecified osteoarthritis, unspecified site; Z79.82 Long term (current) use of aspirin; Z79.84 Long term (current) use of oral hypoglycemic drugs; Z79.891 Long term (current) use of opiate analgesic; Z79.899 Other long term (current) drug therapy; Z85.038 Personal history of other malignant neoplasm of large intestine; Z85.118 Personal history of other malignant neoplasm of bronchus and lung; Z95.2 Presence of prosthetic heart valve; Z96.653 Presence of artificial knee joint, bilateral; Z87.891 Personal history of nicotine dependence; Z90.49 Acquired absence of other specified parts of digestive tract; Z90.2 Acquired absence of lung [part of]
CPT/HCPCS: 36415; 74174; 78278; 80053; 82803; 83036; 83690; 84484; 85025; 85610; 85730; 86850; 86900; 86901; 96360; 96361; 96374; 96376; 99284; 99285

== ENCOUNTER 2017-10-01 06:59 | Day surgery (SDC) | payer MEDICARE, OTHER ==
[~2017-10-01 06:59] MED LIST: CYCLOPENTOLATE 1% OPHTH DROPS 2 ML ONE; KETOROLAC 0.45% OPHTH DROPS ONE; PHENYLEPHRINE 2.5% OPHTH 2 ML DROPS ONE; PROPARACAINE 0.5% OPHTH DROPS 15 ML ONE
[2017-10-01] MEDS ORDERED: BSS/LIDOCAINE/EPINEPHRINE 1 ML SYRINGE ONE (07:01)
[2017-10-01] MEDS ORDERED: BRIMONIDINE 0.2% OPHTH DROPS 5 ML ONE (07:01)
[2017-10-01] MEDS ORDERED: EPINEPHrine 1 MG/ML AMP ONE (07:01)
[2017-10-01] MEDS ORDERED: VANCOMYCIN OPHTHALMI 8MG/0.8ML 8 MG/0.8 ML SYRINGE IO ONE ×2 (07:01→08:00)
[2017-10-01] MEDS ORDERED: TRIAMCIN/MOXIFLOX OPHTHALMIC 0.6 ML VIAL IO ONE (07:01)
[2017-10-01] MEDS ORDERED: TIMOLOL 0.5% OPHTH DROPS ONE (07:01)
[2017-10-01] MEDS ORDERED: LACTATED RINGERS 500 ML IV ONE (07:12)
[2017-10-01] MEDS ORDERED: KETOROLAC 0.45% OPHTH DROPS RIGHTEYE ONE (07:15)
[2017-10-01] MEDS ORDERED: CYCLOPENTOLATE 1% OPHTH DROPS 2 ML RIGHTEYE ONE (07:15)
[2017-10-01] MEDS ORDERED: PROPARACAINE 0.5% OPHTH DROPS 15 ML RIGHTEYE ONE (07:15)
[2017-10-01] MEDS ORDERED: PHENYLEPHRINE 2.5% OPHTH 2 ML DROPS RIGHTEYE ONE (07:15)
[2017-10-01] MEDS ORDERED: BRIMONIDINE 0.2% OPHTH DROPS 5 ML OPTH ONE (08:00)
[2017-10-01] MEDS ORDERED: CHONDR SULF/HYALURONATE SYRINGE IO ONE (08:00)
[2017-10-01] MEDS ORDERED: EPINEPHrine 1 MG/ML AMP IVP ONE (08:00)
[2017-10-01] MEDS ORDERED: TRIAMCIN/MOXIFLOX/VANCO 1 ML VIAL IO ONE (08:00)
[2017-10-01] MEDS ORDERED: TIMOLOL 0.5% OPHTH DROPS OPTH ONE (08:00)
[2017-10-01] MEDS ORDERED: BSS/LIDOCAINE/EPINEPHRINE 1 ML SYRINGE IO ONE (08:00)
[2017-10-01] MEDS ORDERED: MIDAZOLAM 2 MG/2 ML VIAL IVP ONE (08:10)
[2017-10-01 08:29] VITALS: BP 128/80
--- NOTE | 2017-10-01 10:33 | OPERATIVE REPORT ---
DATE OF SERVICE: 10/01/2017 Physician: Mikel Álvarez MD PREOPERATIVE DIAGNOSIS: Visually significant cataract, right eye. This was his first cataract surgery. POSTOPERATIVE DIAGNOSIS: Visually significant cataract, right eye. This was his first cataract surgery. NAME OF PROCEDURE: Phacoemulsification with posterior chamber intraocular lens implant, right eye. SURGEON: Mikel Álvarez MD ANESTHESIA: Monitored anesthesia care. COMPLICATIONS: None. OPERATIVE INDICATIONS: This is an 87-year-old man with progressive vision loss in the right eye due to 2+ nuclear sclerotic and one 2+ cortical cataract. Best corrected visual acuity was 20/30 with glare to 20/400 in the right eye. INDICATIONS FOR SURGERY: Overall decrease in vision, difficulty reading, and difficulty driving at night because of headlights from other vehicles. He was consented at length concerning risks and benefits of cataract surgery, after which he expressed desire to proceed with surgery. OPERATIVE PROCEDURE: The patient was taken into OR #3 and placed under monitored anesthesia care. A surgical timeout was conducted, confirming correct patient, correct procedure, and correct surgical site. He was given topical anesthesia and then prepped and draped in the usual sterile fashion. The eye was entered at the 12 and 9 o'clock positions. Intracameral Shugarcaine was injected into the anterior chamber, followed by Viscoat. A continuous curvilinear capsulorrhexis was performed. The nucleus was hydrodissected and phacoemulsified. The cortex was evacuated using automated infusion aspiration. Provisc was injected in the capsular bag, and a 21.0 diopter intraocular lens inserted in the bag. Approximately 1 mL of a mixture of triamcinolone and moxifloxacin and vancomycin was injected subconjunctivally in the superior quadrant for infection and inflammation prophylaxis. I and A was used to evacuate the viscoelastic material. The eye was inflated to physiologic pressure using balanced salt solution and found to be watertight. The patient was taken from the operating room in good condition and given postop instructions. TD: 10/01/2017 08:35
== END 2017-10-01 07:00 | disposition home or self-care (01) ==
LOC: SDS 06:59
PROVIDERS: ATTEND Ophthalmology
PROC: 08RJ3JZ Replacement of Right Lens with Synthetic Substitute, Percutaneous Approach (ICD-10-PCS; principal; 2017-10-01 08:00)
DX: H25.811 Combined forms of age-related cataract, right eye (principal); E11.9 Type 2 diabetes mellitus without complications; Z79.84 Long term (current) use of oral hypoglycemic drugs
CPT/HCPCS: 66984; A9270; J3490; V2632

== ENCOUNTER 2017-10-29 07:50 | Day surgery (SDC) | payer MEDICARE, OTHER ==
[~2017-10-29 07:50] MED LIST changes: +BRIMONIDINE 0.2% OPHTH DROPS 5 ML ONE; +BSS/LIDOCAINE/EPINEPHRINE 1 ML SYRINGE ONE; -CYCLOPENTOLATE 1% OPHTH DROPS 2 ML ONE; +EPINEPHrine 1 MG/ML AMP ONE; -KETOROLAC 0.45% OPHTH DROPS ONE; -PHENYLEPHRINE 2.5% OPHTH 2 ML DROPS ONE; -PROPARACAINE 0.5% OPHTH DROPS 15 ML ONE; +TIMOLOL 0.5% OPHTH DROPS ONE; +TRIAMCIN/MOXIFLOX OPHTHALMIC 0.6 ML VIAL IO ONE; +VANCOMYCIN OPHTHALMI 8MG/0.8ML 8 MG/0.8 ML SYRINGE IO ONE
[2017-10-29] MEDS ORDERED: CYCLOPENTOLATE 1% OPHTH DROPS 2 ML ONE (08:38)
[2017-10-29] MEDS ORDERED: PROPARACAINE 0.5% OPHTH DROPS 15 ML ONE (08:38)
[2017-10-29] MEDS ORDERED: KETOROLAC 0.45% OPHTH DROPS ONE (08:38)
[2017-10-29] MEDS ORDERED: PHENYLEPHRINE 2.5% OPHTH 2 ML DROPS ONE (08:38)
[2017-10-29] MEDS ORDERED: PHENYLEPHRINE 2.5% OPHTH 2 ML DROPS LEFTEYE ONE (08:40)
[2017-10-29] MEDS ORDERED: KETOROLAC 0.45% OPHTH DROPS LEFTEYE ONE (08:40)
[2017-10-29] MEDS ORDERED: PROPARACAINE 0.5% OPHTH DROPS 15 ML LEFTEYE ONE ×2 (08:40→09:08)
[2017-10-29] MEDS ORDERED: CYCLOPENTOLATE 1% OPHTH DROPS 2 ML LEFTEYE ONE (08:40)
[2017-10-29] MEDS ORDERED: LACTATED RINGERS 500 ML IV ONE (08:45)
[2017-10-29] MEDS ORDERED: MIDAZOLAM 2 MG/2 ML VIAL IVP ONE (09:03)
[2017-10-29] MEDS ORDERED: CHONDR SULF/HYALURONATE SYRINGE IO ONE (09:07)
[2017-10-29] MEDS ORDERED: BRIMONIDINE 0.2% OPHTH DROPS 5 ML OPTH ONE (09:07)
[2017-10-29] MEDS ORDERED: EPINEPHrine 1 MG/ML AMP IR ONE (09:07)
[2017-10-29] MEDS ORDERED: BSS/LIDOCAINE/EPINEPHRINE 1 ML SYRINGE IO ONE ×2 (09:08)
[2017-10-29] MEDS ORDERED: TIMOLOL 0.5% OPHTH DROPS OPTH ONE (09:08)
[2017-10-29 09:37] VITALS: BP 103/69
--- NOTE | 2017-10-29 09:42 | OPERATIVE REPORT ---
DATE OF SERVICE: 10/29/2017 Physician: Mikel Álvarez MD PREOPERATIVE DIAGNOSIS: Visually significant cataract, left eye. Cataract surgery was performed on the right eye on 10/01/2017. POSTOPERATIVE DIAGNOSIS: Visually significant cataract, left eye. Cataract surgery was performed on the right eye on 10/01/2017. PROCEDURE: Phacoemulsification posterior chamber intraocular lens implant, left eye. SURGEON: Mikel Álvarez MD ANESTHESIA: Monitored anesthesia care. COMPLICATIONS: None. OPERATIVE INDICATIONS: This is an 87-year-old man with progressive vision loss in the left eye due to 2+ nuclear sclerotic, 1+ cortical and vacuolar cataract. Best corrected visual acuity was 20/25 with glare to 20/40 in the left eye. Indications for surgery were difficulty driving in low light or at night, difficulty driving at night because of headlights from of the vehicles, and difficulty with glare or bright lights in any situation. He was consented at length concerning the risks and benefits of cataract surgery, after which he expressed a desire to proceed with surgery. OPERATIVE PROCEDURE: The patient was taken into OR #3 and placed under monitored anesthesia care. A surgical timeout was conducted confirming the correct patient, correct procedure, and correct surgical site. He was given topical anesthesia and prepped and draped in the usual sterile fashion. The eye was entered at the 6 and 3 o'clock positions. Intracameral Shugarcaine was injected into the anterior chamber, followed by Viscoat. A continuous-tear curvilinear capsulorrhexis was performed. The nucleus was hydrodissected and phacoemulsified. Cortex was evacuated using automated infusion and aspiration. Provisc was injected in the capsular bag, and a 21.0 diopter intraocular lens inserted in the bag. Approximately 0.7 mL of a mixture of triamcinolone, moxifloxacin, and vancomycin was injected subconjunctivally in the superior quadrant for infection and inflammation prophylaxis. I and A was used to evacuate the viscoelastic material. The eye was inflated to physiologic pressure using balanced salt solution and found to be watertight. The patient was taken from the operating room in good condition and given postop instructions. TD: 10/29/2017 09:37
== END 2017-10-29 07:51 | disposition home or self-care (01) ==
LOC: SDS 07:50
PROVIDERS: ATTEND Ophthalmology
PROC: 08RK3JZ Replacement of Left Lens with Synthetic Substitute, Percutaneous Approach (ICD-10-PCS; principal; 2017-10-29 09:00)
DX: H25.12 Age-related nuclear cataract, left eye (principal); H25.012 Cortical age-related cataract, left eye; E11.9 Type 2 diabetes mellitus without complications; Z79.84 Long term (current) use of oral hypoglycemic drugs; Z95.2 Presence of prosthetic heart valve; Z90.2 Acquired absence of lung [part of]; Z87.891 Personal history of nicotine dependence; Z85.038 Personal history of other malignant neoplasm of large intestine; Z98.41 Cataract extraction status, right eye
CPT/HCPCS: 66984; A9270; J3490; V2632